=== PATIENT | female | born 1970 | race Caucasian/White ===

== ENCOUNTER → 2019-09-04 15:42 | Outpatient (CLI) | payer MEDICAID, SELFPAY ==
[2019-09-07 09:35] LABS: Age Gdln ACOG Testing 30-65 (.)
[2019-09-07 13:56] LABS: HPV APTIMA, High Risk Negative (Negative); HPV Reflexed? YES, CHARGE PATIENT
== END ==
PROVIDERS: Visit Provider Obstetrics & Gynecology
DX: Z12.4 Encounter for screening for malignant neoplasm of cervix (principal)
CPT/HCPCS: 87624; 88175; G0145

== ENCOUNTER → 2021-01-16 15:17 | Outpatient (CLI) | payer MEDICAID, SELFPAY ==
[2021-01-16 18:04] LABS: Thyroid Stim Hormone (TSH) 1.58 uIU/mL (0.358-3.74)
[2021-01-21 20:39] LABS: HPV Reflexed? NOT INDICATED
== END ==
PROVIDERS: Visit Provider Obstetrics & Gynecology
DX: Z12.4 Encounter for screening for malignant neoplasm of cervix (principal); Z13.29 Encounter for screening for other suspected endocrine disorder
CPT/HCPCS: 36415; 84443; 88175; G0145

== ENCOUNTER → 2022-10-14 | Outpatient (CLI) | payer MEDICAID, SELFPAY ==
[2022-10-14 17:36] LABS: Absolute Lymphocyte Count 2.11 X10^3/uL (0.83-4.51); Absolute Neutrophil Count 5.5 X10^3/uL (2.0-7.7); Basophil# 0.08 X10^3/uL; Eosinophil# 0.22 X10^3/uL; Eosinophils% 2.6 % (0-5); Hematocrit 40.9 % (37-47); Lymphocyte # 2.11 X10^3/ul (0.83-4.51); Lymphocyte % 25.3 % (19-41); Mean Corp Hgb Conc 31.8 g/dL (32-36); Mean Corpuscular Hgb 29.1 pg (27.0-32.0); Mean Corpuscular Volume 91.5 fL (81-99); Mean Platelet Vol. 8.8 fl (6.2-12.0); Monocyte# 0.39 X10^3/uL; Monocyte% 4.7 % (0-10); NRBC Flagged by Analyzer 0 % (0-5); Neutrophil # 5.48 X10^3/uL (2.7-7.7); Neutrophil % 65.6 % (47-70); Platelet Count 317 K/mm3 (150-450); RBC Distribution Width CV 12.6 % (11.6-14.6); RBC Distribution Width SD 41.5 fl (35.1-43.9); Red Blood Count 4.47 M/mm3 (4.2-5.4); White Blood Count 8.4 K/mm3 (4.4-11.0)
[2022-10-14 18:30] LABS: ALB/GLOB Ratio 0.9 RATIO (0.9-2.4); AST(SGOT) 50 U/L (15-37); Alanine Aminotransfer ALT/SGPT 66 U/L (13-56); Albumin, Serum 3.7 g/dL (3.2-5.0); Alkaline Phosphatase 159 U/L (45-117); Anion Gap 7 (5-15); BUN 12 mg/dL (7-18); BUN/Creat Ratio 15.3 RATIO (10-20); Calcium,Total 9.1 mg/dL (8.5-10.1); Chloride 106 mmol/L (98-107); Creatinine, Serum 0.79 mg/dL (0.55-1.02); EST Glomerular Filtration Rate 82 mL/min (>60); Est Glom Filt Rate - Afr Amer 99 mL/min (>60); Glucose 109 mg/dL (74-106); Potassium 3.9 mmol/L (3.5-5.1); Protein, Total 7.7 g/dL (6.4-8.2); Sodium Level 142 mmol/L (136-145)
== END | disposition home or self-care (01) ==
LOC: MFPLAB 16:17
PROVIDERS: PCP Family Medicine; Referring Provider Family Medicine; Visit Provider Family Medicine
DX: J02.9 Acute pharyngitis, unspecified (principal)
CPT/HCPCS: 36415; 80053; 85025

== ENCOUNTER 2023-06-18 15:30 | Outpatient (RCR) | payer MEDICAID, SELFPAY ==
--- NOTE | 2023-04-06 09:59 | HP.PTEVAL_ITS ---
Patient's Visit Information Visit Information Visit Information: JASSI ROSALES is a 53 year old F referred to Physical Therapy by Dr. Eldon White DO with a diagnosis of LUMBAR DISC HERNIATION. Date of Evaluation: 04/06/23 Physical Therapist: Kristin Kaba PT, Cert MDT Visit Plan Frequency: 2-3x /Week Duration: 4-6 Weeks Plan: *CHECK AUTH NEXT VISIT: RECORD # OF VISITS APPROVED AND EXPIRATION DATE. CHECK CODES APPROVED WITH POC* AQUATIC THERAPY FOR PAIN RELIEF, POSTURE CORRECTION/STRENGTHENING, INSTRUCTION IN APPROPRIATE BODY MECHANICS AND ACTIVITY MODIFICATIONS. DLS STARTING WITH A NEUTRAL SPINE PROGRESSING ROM TOLERATED. HYUN LE ROM, STRETCHING AND STRENGTHENING. HEP INSTRUCTION. 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 A LOT OF STANDING AND BENDING. Present symptoms: HYUN LOW BACK PAIN. PAIN, NUMBNESS AND TINGLING DOWN L LE TO THE FOOT. Present since: JUL 2022 Pain Scale: WORST 8/10, LEAST 3/10 Currently: 4/10 Is it getting better, worse or staying the same: GETTING WORSE Commenced as a result of: NO APPARENT REASON Symptoms at onset: PAIN IN L BUTTOCK Worse: PROLONGED STANDING, WALKING AND SITTING. TRYING TO DO ANYTHING EXTRA LIKE VOLLEYBALL OR PICKLE BALL. GETS WORSE THE DAY PROGRESSES. BENDING, LIFTING, TWISTING. HOUSEWORK. Better: RESTING IN SITTING OR LYING ON SIDE WITH KNEES UP, ADVIL AND TYLONOL. Disturbed sleep: SOMETIMES Previous history/Previous treatment: 2 PRIOR BACK SURGERIES IN 2013 AND 2014 FOR HERNIATION AND RE-HERNIATAION. TRESA'S PRIOR TO FIRST SURGERY WITHOUT SUCCESS. PHYSICAL THERAPY WITH LAST EPISODE OF CARE PRIOR TO 2019. Treatment this episode: ABOUT 3 WKS AGO TRIED PREDNISONE WITHOUT MUCH BENEFIT. Coughing/sneezing/straining: NEGATIVE Gait: PATIENT REPORTS HER GAIT IS CURRENTLY LIMITED BY HER BACK BUT MORE SO BY HER R ACHILLES TENDONITIS DX'D BY DR. WHITE RECENTLY. ACHILLES HAS BEEN BOTHERING HER FOR OVER A YEAR AND WORSENED IN JANUARY 2023. SHE WORKS SHE ISN'T CONFIDENT IN HER WALKING DUE TO NUMBNESS IN HER LEFT FOOT. Bowel or Bladder Dysfunction: URGE UI. NO BOWEL INCONTINENCE. Accidents: NO Unexplained weight loss: NO Imaging: RECENT LUMBAR X-RAYS - SEE [facility] EMR. NO MRI SINCE 2017. PMH/Recent major surgery: HYUN ANKLE TENDON REPAIRS. Objective Objective: Sitting/Standing Posture: POOR. ANTERIOR PELVIC TILT. NO RELEVANT LATERAL LUMBAR SHIFT. RIGHT ILIAC CREST HIGHER THAN LEFT. Active Correction of posture: WORSE Other Observations: INDEP GAIT AND TRANSFERS WITH MILD LIMP ON R LE WHICH PATIENT RELATES TO ACHILLES PAIN. Sensory deficit: HYUN LE LIGHT TOUCH SENSATION GROSSLY INTACT AND SYMMETRICAL EXCEPT DECREASED LIGHT TOUCH OF LEFT FOOT COMPARED TO RIGHT. ROM deficit: TIGHT HYUN HIP FLEXORS Motor deficit: HYUN LE'S GROSSLY 5/5 WITH MMT'ING EXCEPT HIPS 4/5. PATIENT DENIES INCREASED PAIN WITH TESTING. Reflexes: 1/2 HYUN LE'S Dural Signs: POSITIVE L LE Lumbar mvmt loss: flex - MIN ext - MOD R SG - MOD L SG - MOD PATIENT C/O INCREASED LBP WITH LUMBAR ROM TESTING ALL PLANES. Core strength: POOR Palpation: NO ACUTE LUMBAR, SACRAL OR HIP TENDERNESS. Balance/Special Test Scores Oswestry Low Back Score: 18 Goals Goal 1:: DECREASE C/O HYUN LB AND L LE SX'S. Goal Time Frame: 4-6 Weeks Goal 2:: IMPROVE LIFTING, WALKING, SITTING, STANDING, SLEEP, SOCIAL LIFE, TRAVEL AND WORK/HOMEMAKING FUNCTION. Goal Time Frame: 4-6 Weeks Goal 3:: INSTRUCT IN PROPHYLAXIS Goal Time Frame: 4-6 Weeks Anticipated Interventions Patient/Client Instruction: Educate patient on: Condition, Plan of Care and Ri sk Factors For the Purpose of:: To improve self management Therapeutic Exercise to Include: Strength training, Body mechanics, Postural training, Flexibilty training, Neuromotor development, In an aquatic setting and Dynamic Lumbar Stabilization For the Purpose of:: To decrease pain, To improve muscle performance and motor f unction, To increase tolerance to activity/condition/position and To improve ability of physical actions for home/community/work/leisure TENS: Yes IF ES: Yes Cryotherapy (ice pack, ice massage): Yes Thermo therapy (hot pack): Yes Ultrasound (thermal/non thermal): Yes For the Purpose of:: To decrease pain and To improve nutrient delivery to tissue Text: Thank you for the opportunity to evaluate your patient. For Medicare and Medicare HMO plans, please review the plan of care and approve it. It will need to be FAXED BACK to us at [phone] for Medicare purposes. For Medicare only, by signing this I certify the plan of care. Please let me know if there are questions or concerns regarding this plan of care. Physician Signature: D ate:
--- NOTE | 2023-05-05 08:40 | HP.PTREVAL ---
Re-Evaluation Intro: Dr. Eldon White, DO, It has been my pleasure to treat JASSI ROSALES over the last 10 visits for LUMBAR DISC HERNIATION. Please see the progress note below for an update on the physical therapy plan of care! Subjective Subjective: THE NUMBNESS IS NOT GOING TO MY FOOT ANYMORE. IT STAYS IN MY L BUTTOCK AND BACK OF LEG. 3/10 PAIN L. PATIENT REPORTS HER L SIDE SX'S ARE ABOUT 80% BETTER BUT HER RIGHT LB/LEG PAIN IS WORSE (NOT NEW BUT WORSE). PATIENT REPORTS SHE IS STILL HAVING ACHILLES PAIN L>R. HAS HISTORY WITH Podiatry and Ortho FOR [place]KLES IN [place] BUT IS HOPING TO FIND SOMEONE LOCAL. STATES SHE HAS ALREADY DISCUSSED WITH DR. WHITE. Objective Objective/Function: PATIENT WAS SEEN TODAY FOR RE-ASSESSMENT OF PROGRESS TOWARD THE SET PT GOALS AND THE NEED FOR FURTHER PHYSICAL THERAPY VS READINESS FOR DISCHARGE. PATIENT HAS HAD SIGNIFICANT IMPROVEMENT IN LLE SX'S BUT REPORTS INCREASED R LB/BUTTOCK PAIN. LUMBAR FLEXION AND L SG ROM HAS IMPROVED SINCE INITIAL EVAL AND HYUN LE DURAL TESTS ARE NEGATIVE NOW. HYUN ANKLE PAIN R >L PERISTS AND R ACHILLES SWELLING EVIDENT. PHYSICIAN RE-ASSESSMENT RECOMMENDED. PATIENT AGREEABLE. UPON EXAM TODAY: PATIENT CONTINUES TO HAVE DIFFICULTY WALKING WHICH PATIENT RELATES TO HER ACHILLES PAIN. Dural Signs: NEGATIVE HYUN LE'S. HYUN LE STRENGTH AND ROM WFL EXCEPT R PLANTAR FLEXION 3+/5 AND PAINFUL. CORE STRENGTH - FAIR Lumbar mvmt loss: flex - NIL ext - MOD R SG - MOD L SG - MIN PATIENT REPORTS BENDING TO THE R INCREASES R LBP. Plan Plan Plan: PHYSICIAN FOLLOW UP. HOLD CHART. Balance/Gait/Functional tests Balance/Special Test Scores Oswestry Low Back Score: 15 Goals Goals Goal 1:: DECREASE C/O HYUN LB AND L LE SX'S. Goal Time Frame: 4-6 Weeks Goal Progress: L IMPROVING, R WORSENING Goal 2:: IMPROVE LIFTING, WALKING, SITTING, STANDING, SLEEP, SOCIAL LIFE, TRAVEL AND WORK/HOMEMAKING FUNCTION. Goal Time Frame: 4-6 Weeks Goal Progress: Progressing Goal 3:: INSTRUCT IN PROPHYLAXIS Goal Time Frame: 4-6 Weeks Goal Progress: Progressing Anticipated Interventions Anticipated Interventions Patient/Client Instruction: Educate patient on: Condition, Plan of Care and Risk Factors For the Purpose of:: To improve self management Therapeutic Exercise to Include: Strength training, Body mechanics, Postural training, Flexibilty training, Neuromotor development, In an aquatic setting and Dynamic Lumbar Stabilization For the Purpose of:: To decrease pain, To improve muscle performance and motor function, To increase tolerance to activity/condition/position and To improve ability of physical actions for home/community/work/leisure TENS: Yes IF ES: Yes Cryotherapy (ice pack, ice massage): Yes Thermo therapy (hot pack): Yes Ultrasound (thermal/non thermal): Yes For the Purpose of:: To decrease pain and To improve nutrient delivery to tissue Re-Evaluation Ending Re-evaluation ending: Please do not hesitate to contact me at [phone] by phone or if you have questions or concerns regarding this new plan of care! Sincerely, Krsitin Kaba, PT, Cert MDT
--- NOTE | 2023-05-31 14:10 | HP.PTREVAL ---
Re-Evaluation Intro: Dr. Eldon White, DO, It has been my pleasure to treat JASSI ROSALES over the last 11 visits for R ACHILLES TENDINITIS. Please see the progress note below for an update on the physical therapy plan of care! Subjective Subjective: PATIENT REPORTS SHE HAD FOLLOW UP FOR HER BACK WITH DR. WHITE AND HE ORDERED AN MRI FOR HER BACK, DID NOT ORDER FURTHER PT FOR HER BACK AND REFERRED HER TO DR. PEDERSEN FOR HER R HEEL PAIN. PATIENT REPORTS DR. PEDERSEN REFERRED HER BACK TO PT FOR HER HEEL PAIN AND ORDERED X-RAYS AND AN MRI FOR HER HEEL TOO. Present symptoms: PAIN IN THE BACK OF THE R HEEL. PATIENT DENIES NUMBNESS AND TINGLING IN THE R LEG, FOOT AND TOES. PATIENT DENIES L HEEL PAIN. Present since: ABOUT 2 YEARS AGO (BEFORE STARTING PT HERE AT [facility] FOR HER BACK). Pain Scale: WORST 10/10, LEAST 2/10 Currently: 2/10 Is it getting better, worse or staying the same: GETTING WORSE Commenced as a result of: NO APPARENT REASON Symptoms at onset: BOTTOM OF R HEEL. Worse: PROLONGED STANDING, PROLONGED WALKING, TRYING TO WALK WITH A REGULAR SHOE ON, TRYING TO WALK IN BOOT GIVEN BY [place] AND TRYING TO WALK BAREFOOT. Better: REST, SITTING, LYING DOWN, NOT BEING ON IT. Disturbed sleep: SOMETIMES Previous history/Previous treatment: No prior treatment other than as a teenager when a assistant distribution manager filed a bone down on Right foot and tore tendons so Ortho repaired the tendons also as a teenager. No further treatment until current. Treatment this episode: Was issued a walking boot but unable to tolerated and plans to return it today. Gait: PATIENT REPORTS SHE HAS TO BE VERY CAREFUL HOW SHE LANDS ON HER FOOT TO AVOID STABBING PAIN AND SHE WALKS VERY STIFF. SHE REPORTS THE LONGER SHE IS ON IT THE MORE IT HURTS AND THE MORE SHE HAS TO COMPENSATE FOR THE PAIN. Unexplained weight loss: NO Imagin05/25/23 X-RAY RESULT PER DR. BENAVIDES NOTE: XR R foot and ankle - calcification at Achilles insertion and lateral to cuboid, otherwise nil acute. Objective Objective/Function: THIS PATIENT WAS SEEN TODAY FOR A RE-ASSESSMENT DUE TO NEW DX OF R ACHILLES TENDINITIS. SHE AMBULATES INDEP'LY INTO PT LIMPING ON R LE WITH CROC TYPE FLIP FLOPS ON. SHE WALKS WITH DECREASED CADANCE, DECREASED STRIDE LENGTH, DECREASED WEIGHT BEARING TIME R LE, DECREASED HEEL STRIKE AND DECREASED TOE OFF PHASES OF GAIT ON THE R LE. HYUN LE STRENGTH AND ROM WFL EXCEPT R PLANTAR FLEXION 3+/5 AND PAINFUL WITH HIP EXTENSION AND R ANKLE EVERSION 4/5 WITH VERY RESTRICTED ROM OF +3 DEG. R ANKLE DF 18 DEG, PF 42 DEG, INV 33 DEG. SHE IS TENDER WITH PALPATION OF THE DISTAL R ACHILLES TENDON AND INTO THE HEEL AT THE TENDON insertion with visible bump that feels calcified. DISCUSSED PHYSICAL THERAPY TREATMENT OPTIONS WITH PATIENT OF MODALITIES INCLUDING SHOCK WAVE THERAPY AND EXERCISES INCLUDING ECCENTRICS AND PATIENT WOULD LIKE TO TRY PT OPTIONS OTHER THAN SHOCK WAVE THERAPY FIRST. Plan Plan Plan: *CHECK AUTH FOR NEW DX* PT 2X'S A WK X 4 WKS FOR US, STM, STRETCHING AND STRENGTHENING OF R LE INCLUDING ECCENTRIC ANKLE EXERCISES TOLERATED TO TRY TO DECREASE HEEL PAIN AND IMPROVE GAIT. PATIENT IS AGREEABLE WITH THIS POC. Balance/Gait/Functional tests Balance/Special Test Scores Oswestry Low Back Score: 15 Lower Extremity Functional Score: 35 Goals Goals Goal 1:: DECREASE C/O HYUN LB AND L LE SX'S. Goal Time Frame: 4-6 Weeks Goal Progress: L IMPROVING, R WORSENING Goal 2:: IMPROVE LIFTING, WALKING, SITTING, STANDING, SLEEP, SOCIAL LIFE, TRAVEL AND WORK/HOMEMAKING FUNCTION. Goal Time Frame: 4-6 Weeks Goal Progress: Progressing Goal 3:: INSTRUCT IN PROPHYLAXIS Goal Time Frame: 4-6 Weeks Goal Progress: Progressing Goal 4:: NEW GOAL: DECREASE C/O R HEEL PAIN Goal Time Frame: 4-6 Weeks Goal 5:: IMPROVE STANDING AND WALKING FUNCTION Goal Time Frame: 4-6 Weeks Goal 6:: PATIENT WILL BE INDEP WITH A HEP FOR CONTINUED IMPROVEMENT ONCE FORMAL PHYSICAL THERAPY CONCLUDES. Goal Time Frame: 4-6 Weeks Anticipated Interventions Anticipated Interventions Patient/Client Instruction: Educate patient on: Condition, Plan of Care and Risk Factors For the Purpose of:: To improve self management Therapeutic Exercise to Include: Strength training, Body mechanics, Postural training, Flexibilty training, Neuromotor development, In an aquatic setting and Dynamic Lumbar Stabilization For the Purpose of:: To decrease pain, To improve muscle performance and motor function, To increase tolerance to activity/condition/position and To improve ability of physical actions for home/community/work/leisure TENS: Yes IF ES: Yes Cryotherapy (ice pack, ice massage): Yes Thermo therapy (hot pack): Yes Ultrasound (thermal/non thermal): Yes For the Purpose of:: To decrease pain and To improve nutrient delivery to tissue Re-Evaluation Ending Re-evaluation ending: Please do not hesitate to contact me at [phone] by phone or if you have questions or concerns regarding this new plan of care! Sincerely, Kristin Kaba, PT, Cert MDT
--- NOTE | 2023-06-18 15:53 | HP.PTDCSUM ---
Discharge Summary D/C summary: It has been my pleasure to treat JASSI ROSALES referred by Dr. Eldon White DO, with the diagnosis of R ACHILLES TENDINITIS for a total of 17 visit(s). Discharge Date: Please see the following information for a summary of their discharge status. Subjective Subjective: HAVING MRI'S NEXT WEEK FOR BACK AND ANKLE. OVER-ALL PATIENT REPORTS THERE IS NO SIGNIFICANT CHANGE IN HER ANKLE SINCE STARTING PT. Pain Lumbar: Pain Intensity (Out of 10): 4 Left LE: Pain Intensity (Out of 10): 3 Right LE: Pain Intensity (Out of 10): 6 Overall Improvement % Improvement: 0 Objective Objective/Function: PATIENT WAS SEEN TODAY FOR RE-ASSESSMENT OF PROGRESS TOWARD THE SET PT GOALS AND THE NEED FOR FURTHER PHYSICAL THERAPY VS READINESS FOR DISCHARGE. UPON EXAM TODAY THERE ARE NO SIGNIFICANT CHANGES SINCE STARTING PHYSICAL THERPAY FOR R ACHILLES TENDINITIS. MRI PENDING. WILL D/C DUE TO LACK OF PROGRESS. Goals Goal 1:: DECREASE C/O HYUN LB AND L LE SX'S. Goal Progress: L IMPROVING, R WORSENING Goal 2:: IMPROVE LIFTING, WALKING, SITTING, STANDING, SLEEP, SOCIAL LIFE, TRAVEL AND WORK/HOMEMAKING FUNCTION. Goal Progress: Progressing Goal 3:: INSTRUCT IN PROPHYLAXIS Goal Progress: Not Progressing Goal 4:: NEW GOAL: DECREASE C/O R HEEL PAIN Goal Progress: Not Progressing Goal 5:: IMPROVE STANDING AND WALKING FUNCTION Goal Progress: Not Progressing Goal 6:: PATIENT WILL BE INDEP WITH A HEP FOR CONTINUED IMPROVEMENT ONCE FORMAL PHYSICAL THERAPY CONCLUDES. Goal Progress: Not Progressing Plan Plan: D/C D/C Information d/c sentence: If there are questions or concerns regarding this patient's physical therapy, please feel free to call me at [phone]. Thank you for the referral of this patient. Sincerely, Kristin Kaba, PT, Cert MDT Balance/Gait/Functional tests Balance/Special Test Scores Oswestry Low Back Score: 15 Lower Extremity Functional Score: 34 Improvement % Improvement: 0
== END 2023-06-18 19:00 | disposition home or self-care (01) ==
LOC: PT 15:30
PROVIDERS: PCP Family Medicine; Referring Provider Orthopaedic Surgery; Visit Provider Orthopaedic Surgery
DX: M51.26 Other intervertebral disc displacement, lumbar region (principal)
CPT/HCPCS: 97035; 97110; 97113; 97140; 97162; 97164

== ENCOUNTER → 2023-06-23 | Outpatient (CLI) | payer MEDICAID, SELFPAY ==
--- NOTE | 2023-06-23 07:25 | MRI_ITS ---
STUDY: MRI RIGHT ANKLE WITHOUT CONTRAST REASON FOR EXAM: Female, 53 years old. Achilles tendonitis. TECHNIQUE: Standardized fat and water weighted pulse sequences were obtained in all 3 orthogonal planes. COMPARISON: Right ankle radiographs dated 05/25/2023. FINDINGS: Normal subcutis adipose space. Normal posterior tibialis tendon. Normal flexor digitorum longus tendon. Normal flexor hallucis longus tendon. Normal peroneus longus and brevis tendons. Normal tibialis anterior tendon. Normal extensor hallucis longus tendon. Normal extensor digitorum longus tendons. There is slightly elevated increased intrasubstance signal in the distal Achilles tendon (sagittal STIR series 3 image 13), compatible with minimal tendinosis. There is no Achilles tendon rupture/retraction. There is mild reactive subcortical marrow edema in the posterior calcaneal tuberosity. There is mild retrocalcaneal bursitis. Normal plantar fascia. Normal plantar calcaneal tuberosity. Normal intrinsic muscles of the rearfoot. Normal distal tibiofibular syndesmotic ligamentous complex. Normal lateral ligamentous complex. Normal subtalar ligaments and sinus tarsi. Normal deltoid ligamentous complex. Normal plantar calcaneonavicular (spring) ligament. Normal tibiotalar articulation. Normal talar dome. Normal subtalar articulations. Normal talonavicular articulation. Normal calcaneocuboid articulation. Normal navicular-cuneiform articulations. MRI/Lower Ext Joint Only (Routine) IMPRESSION: Minimal distal Achilles tendinosis, with no Achilles tendon rupture/retraction. Mild reactive subcortical marrow edema in the posterior calcaneal tuberosity, with mild retrocalcaneal bursitis. Electronically Signed: Curtis Garcia MD at 9:15 EDT ,
--- NOTE | 2023-06-23 07:25 | MRI_ITS ---
EXAM: MR LUMBAR SPINE WITHOUT INTRAVENOUS CONTRAST CLINICAL INDICATION: pain TECHNIQUE: Multiplanar and multisequence MR images of the lumbar spine without intravenous contrast. COMPARISON: X-ray 04/05/2023. FINDINGS: VERTEBRAE: Vertebral body heights are preserved. Normal alignment. No spondylolisthesis. There is preservation of the normal lumbar lordosis. Mild marrow edema in the L5 articular facets and right lamina, consistent with stress injury. SPINAL CORD: Unremarkable. Normal position and signal intensity of the conus medullaris. SOFT TISSUES: Unremarkable. DISCS/SPINAL CANAL/NEURAL FORAMINA: T12-L1: Normal disc height and morphology. Normal bilateral facet joints. Normal central canal. Normal bilateral lateral recesses. Normal intervertebral neural foramina. L1-2: Normal disc height and morphology. Normal bilateral facet joints. Normal central canal. Normal bilateral lateral recesses. Normal intervertebral neural foramina. L2-3: Normal disc height and morphology. Normal bilateral facet joints. Normal central canal. Normal bilateral lateral recesses. Normal intervertebral neural foramina. L3-4: Disc dehydration. Normal bilateral facet joints. Normal central canal. Normal bilateral lateral recesses. Normal intervertebral neural foramina. L4-5: Disc dehydration. Mild, noncompressive spondylotic bar. Normal bilateral facet joints. Normal central canal. Normal bilateral lateral recesses. Normal intervertebral neural foramina. L5-S1: Marked disc space narrowing. 6 mm retrolisthesis. No demonstrated spondylolysis. Modic type II fatty endplate changes. Normal bilateral facet joints. Normal central canal. Normal bilateral lateral recesses. Mild foraminal encroachment due to spurring. MRI/Spine Lumbar (Routine) IMPRESSION: No compressive disc disease, canal or high-grade foraminal stenosis. L5 posterior element marrow edema suggests stress injury. L5-S1 retrolisthesis. Electronically Signed: Cristina Bejarano MD at 16:27 EDT Reading Location ID and State: [id number] / Tel , Service support ,
== END | disposition home or self-care (01) ==
LOC: MRI 07:17
PROVIDERS: PCP Family Medicine; Referring Provider Orthopaedic Surgery Sports Medicine; Visit Provider Orthopaedic Surgery Sports Medicine
DX: M92.61 Juvenile osteochondrosis of tarsus, right ankle (principal); M76.61 Achilles tendinitis, right leg; M25.571 Pain in right ankle and joints of right foot; M51.37 Other intervertebral disc degeneration, lumbosacral region
CPT/HCPCS: 72148; 73721

== ENCOUNTER 2023-12-09 15:30 | Outpatient (RCR) | payer MEDICAID, SELFPAY ==
--- NOTE | 2023-11-10 12:09 | HP.PTEVAL ---
Patient's Visit Information Visit Information Visit Information: JASSI ROSALES is a 53 year old F referred to Physical Therapy by Dr. Reinaldo Lugo DPM with a diagnosis of R Achilles Tendinitis with Heel Spur. Date of Evaluation: 11/09/23 Physical Therapist: Martínez Lombardi DPT Visit Plan Frequency: 2x /Week Duration: 4 Weeks Plan: Begin gentle progression into strengthening to avoid irritation, PF the most irritating resisted motion. Consider increasing to orange or green band to progress HEP as pt tolerates. -ankle stretching -gentle resisted ankle strengthening -DL and SL balance (dynamic stability) -hip strengthening -dry needling to R calf prn HEP: S/L hip ABD, towel-assisted calf stretch, 3 way ankle with YTB Subjective Subjective: Pt presents to PT with R ankle/heel pain that began about 2 years ago that got progressively worse. Pt has hx of achilles tendinitis and back pain, back pain is better and feels like this has helped with walking, and tried EPAT with Dr. White to address tendinitis/-osis. Pain is typically worse at night after full day of WB (wearing night splint), soreness gets up to 4/10 at base of heel and best is 1/10, sitting helps and sometimes uses heat. Pt feels the pain has become more tolerable with stretching and EPAT, does not routinely take pain meds. Goes back every [address] White. Pt stopped wearing walking boot 6 weeks ago. Pt goals: get back to walking 3 miles for exercise, and have a normal gait pattern with stairs. 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 Pain Right Ankle: Pain Intensity (Out of 10): 2 Pain Intensity Range: 1 and 4 Objective Objective: ROM (AROM/PROM): R ankle DF 13 / 20 PF 40 / 60 INV 30 EV 20 with difficulty coordinating movement MMT: R ankle 5/5 except for PF 3/5 with increase in pain, R hip ABD 3/5 L hip ABD 3+/5 PALPATION: tenderness in medial gastroc, heel spur, achilles tendon GAIT: katia ankle supination in stance phase, increased hip sway, some hip rotation with heelstrike STAIRS: pulling and pain when descending on RLE (eccentric control difficult) Pt demonstrates decreased irritability and tolerated SL eccentric heelraises. Pt is a risk for re-irritation of Achilles tendon, but has good potential to improve gait and stair navigation with combined PT and pain management techniques (EPAT). Balance/Special Test Scores Lower Extremity Functional Score: 49 Goals Goal 1:: STG: Pt will be able to amb. 1 mile with <2/10 pain Goal Time Frame: 2-4 Weeks Goal 2:: STG: Pt will demonstrate 5/5 R ankle strength with 0/10 pain in all directions Goal Time Frame: 2-4 Weeks Goal 3:: LTG: Pt will be able to navigate stairs with <2/10 pain and good control during descent Goal Time Frame: 4-6 Weeks Goal 4:: LTG: Pt will be able to amb. 3 miles with <2/10 pain Rehabilitation Potential Physical Therapy Diagnosis: Pt presents with R heel pain and weakness most likely d/t tendinitis/-osis and heel spur. Pt would benefit from skilled PT services to address R ankle and hip strength (in WB), ankle stability, and R achilles tissue extensibility to improve pain and ease with ADLs. Rehabilitation Potential: Good Anticipated Interventions Patient/Client Instruction: Educate patient on: Condition and Plan of Care For the Purpose of:: To decrease pain, To decrease swelling/inflammation, To increase ROM, To improve nutrient delivery to tissue, To improve ability to perform ADL's, To increase tolerance to activity/condition/position, To improve performance and independence with ADL's, To decrease level of supervision to perform tasks, To improve ability of physical actions for home/community/work/leisure, To improve gait and locomotor functions, To improve health of tissue, To decrease soft tissue restriction, To increase flexibility/ROM, To improve endurance, To improve balance, To improve safety with gait, To assume or resume ADL's, To reduce risk of recurrence, To improve safety, To improve health and function, To improve self management, To prevent re-injury, To improve ability to perform tasks related to life management and To improve tolerance to ADL's Therapeutic Exercise to Include: Strength training, Endurance training and Balance training For the Purpose of:: To increase oxygenation perfusion, To improve muscle performance and motor function, To improve ability to perform ADL's, To increase tolerance to activity/condition/position, To improve performance and independence with ADL's, To decrease level of supervision to perform tasks, To improve gait and locomotor functions, To improve health of tissue, To decrease soft tissue restriction, To increase flexibility/ROM, To improve endurance, To improve balance, To improve safety, To improve health and function, To foster healthy habits, To improve ability to perform tasks related to life management and To improve tolerance to ADL's Manual Therapy Techniques to Include: Mobilization, Passive ROM, Functional dry needling and Soft tissue mobilization For the Purpose of:: To decrease pain, To decrease swelling/inflammation, To increase ROM, To improve health of tissue, To decrease soft tissue restriction, To increase flexibility/ROM, To prevent re-injury and To improve ability to perform tasks related to life management Iontophoresis (with Dexamethozone, with Acetic acid): Yes Cryotherapy (ice pack, ice massage): Yes Thermo therapy (hot pack): Yes Ultrasound (thermal/non thermal): Yes Vasopneumatic device: Yes For the Purpose of:: To decrease pain, To increase oxygenation perfusion and To improve health of tissue Text: Thank you for the opportunity to evaluate your patient. For Medicare and Medicare HMO plans, please review the plan of care and approve it. It will need to be FAXED BACK to us at [phone] for Medicare purposes. For Medicare only, by signing this I certify the plan of care. Please let me know if there are questions or concerns regarding this plan of care. Physician Signature: Date:
--- NOTE | 2023-12-10 15:20 | HP.PTREVAL ---
Re-Evaluation Intro: Dr. Reinaldo Lugo, DPM, It has been my pleasure to treat JASSI ROSALES over the last 9 visits for R Achilles Tendinitis with Heel Spur. Please see the progress note below for an update on the physical therapy plan of care! Subjective Subjective: Pt sees Dr. Lugo next week, pt saw him 3 weeks ago and he Pts current goal is to make it as good as possible. Pt would like to get back to working out and walking. Pt does not notice herself limping, but says [facility] that she limps. Pt is unsure of how much more potential she has for PT and if sx will need to be an option. Feels that strength and ROM have improved but still having pain. Worst pain has been is a 5/10 generally at end of the day. Still receiving EPAT treatments. Objective Objective/Function: ROM: PF 50 deg, DF 12 deg, INV 15 deg, EV 8 deg more of a stretch MMT: 5/5 global ankle strength, some irritation with repetitive HR GAIT: early heel off, decreased DF in stance phase STAIRS: reciprocal pattern with no UE support PALPATION: some pain on heel spur with moderate to firm pressure Pt demonstrates low level of irritability, but increased activity still causes pain and difficulties with walking. Pt appropriate to trial walking program and begin to transition to more indep HEP/management at home. Achilles tightness/stiffness along with point tenderness pain and decreased muscular endurance seems to be greatest limiting factors at the moment. Plan Plan Plan: Pt to change to 1x per week and begin walking program indep. -continue stretching for plantar fascia and calves and invertors (make sure foot is more neutral and not supinated before stretching) -ankle eccentrics -foot mobilizations (rigid foot) Balance/Gait/Functional tests Balance/Special Test Scores Lower Extremity Functional Score: 49 Goals Goals Goal 1:: STG: Pt will be able to amb. 1 mile with <2/10 pain Goal Time Frame: 2-4 Weeks Goal Progress: Progressing Goal 2:: STG: Pt will demonstrate 5/5 R ankle strength with 0/10 pain in all directions Goal Time Frame: 2-4 Weeks Goal Progress: Goal Met Goal 3:: LTG: Pt will be able to navigate stairs with <2/10 pain and good control during descent Goal Time Frame: 4-6 Weeks Goal 4:: LTG: Pt will be able to amb. 3 miles with <2/10 pain Goal Progress: Progressing Anticipated Interventions Anticipated Interventions Patient/Client Instruction: Educate patient on: Condition and Plan of Care For the Purpose of:: To decrease pain, To decrease swelling/inflammation, To increase ROM, To improve nutrient delivery to tissue, To improve ability to perform ADL's, To increase tolerance to activity/condition/position, To improve performance and independence with ADL's, To decrease level of supervision to perform tasks, To improve ability of physical actions for home/community/work/leisure, To improve gait and locomotor functions, To improve health of tissue, To decrease soft tissue restriction, To increase flexibility/ROM, To improve endurance, To improve balance, To improve safety with gait, To assume or resume ADL's, To reduce risk of recurrence, To improve safety, To improve health and function, To improve self management, To prevent re-injury, To improve ability to perform tasks related to life management and To improve tolerance to ADL's Therapeutic Exercise to Include: Strength training, Endurance training and Balance training For the Purpose of:: To increase oxygenation perfusion, To improve muscle performance and motor function, To improve ability to perform ADL's, To increase tolerance to activity/condition/position, To improve performance and independence with ADL's, To decrease level of supervision to perform tasks, To improve gait and locomotor functions, To improve health of tissue, To decrease soft tissue restriction, To increase flexibility/ROM, To improve endurance, To improve balance, To improve safety, To improve health and function, To foster healthy habits, To improve ability to perform tasks related to life management and To improve tolerance to ADL's Manual Therapy Techniques to Include: Mobilization, Passive ROM, Functional dry needling and Soft tissue mobilization For the Purpose of:: To decrease pain, To decrease swelling/inflammation, To increase ROM, To improve health of tissue, To decrease soft tissue restriction, To increase flexibility/ROM, To prevent re-injury and To improve ability to perform tasks related to life management Iontophoresis (with Dexamethozone, with Acetic acid): Yes Cryotherapy (ice pack, ice massage): Yes Thermo therapy (hot pack): Yes Ultrasound (thermal/non thermal): Yes Vasopneumatic device: Yes For the Purpose of:: To decrease pain, To increase oxygenation perfusion and To improve health of tissue Re-Evaluation Ending Re-evaluation ending: Please do not hesitate to contact me at [phone] by phone or if you have questions or concerns regarding this new plan of care! Sincerely, RIAN LindquistT
== END 2023-12-09 19:00 | disposition home or self-care (01) ==
LOC: PT 15:30
PROVIDERS: PCP Family Medicine; Referring Provider Podiatrist; Visit Provider Podiatrist
DX: M76.61 Achilles tendinitis, right leg (principal); M77.31 Calcaneal spur, right foot
CPT/HCPCS: 97110; 97161; 97530

== ENCOUNTER → 2024-07-12 | Outpatient (CLI) | payer OTHER, SELFPAY ==
--- NOTE | 2024-07-12 09:17 | RAD_ITS ---
STUDY: X-RAY - LEFT SHOULDER REASON FOR EXAM: Female, 54 years old. left shoulder pain TECHNIQUE: 4 view(s) of the shoulder. COMPARISON: None. FINDINGS: Normal glenohumeral articulation. Normal acromioclavicular joint. Normal acromion. Normal humeral head and visualized proximal humerus. There is periarticular soft tissue calcification consistent with a calcific tendinitis. Normal visualized pulmonary apex. RAD/Shoulder min 2 Views IMPRESSION: No demonstrated fracture or joint space abnormality Evidence of calcific rotator cuff tendinitis Electronically Signed: Nitish Viramontes MD at 9:48 EDT ,
== END | disposition home or self-care (01) ==
PROVIDERS: PCP Family Medicine; Referring Provider Family Medicine; Visit Provider Family Medicine
DX: M25.512 Pain in left shoulder (principal)
CPT/HCPCS: 73030

== ENCOUNTER → 2024-07-24 | Outpatient (CLI) | payer OTHER, SELFPAY ==
[2024-08-01 15:09] LABS: HPV APTIMA, High Risk Negative (Negative)
[2024-08-02 08:08] LABS: HPV Reflexed? NOT INDICATED
== END | disposition home or self-care (01) ==
PROVIDERS: Registered Nurse; PCP Family Medicine
DX: Z12.4 Encounter for screening for malignant neoplasm of cervix (principal)
CPT/HCPCS: 88175; G0145

== ENCOUNTER → 2024-07-27 | Outpatient (CLI) | payer OTHER, SELFPAY ==
[2024-07-27 10:26] LABS: Anion Gap 3 (5-15); BUN 24 mg/dL (7-18); BUN/Creat Ratio 32.5 RATIO (10-20); Chloride 105 mmol/L (98-107); Cholesterol 173 mg/dL (200); Creatinine, Serum 0.74 mg/dL (0.55-1.02); EST Glomerular Filtration Rate 87 mL/min (>60); Est Glom Filt Rate - Afr Amer 106 mL/min (>60); Follicle Stimulating Hormone 63.2 mIU/mL; Glucose 86 mg/dL (74-106); High Density Lipoprotein 83 mg/dL; Luteinizing Hormone 30.6 mIU/mL; Potassium 4.3 mmol/L (3.5-5.1); Sodium Level 136 mmol/L (136-145); Triglycerides 36 mg/dL; Very Low Density Lipoprotein 7 mg/dL (5-40)
[2024-07-27 10:27] LABS: Vitamin D,25 Hydroxy 34.4 ng/mL
[2024-08-01 22:06] LABS: Estrogen, Total, Serum 28 pg/mL (.)
== END | disposition home or self-care (01) ==
PROVIDERS: Registered Nurse; PCP Family Medicine
DX: Z00.00 Encounter for general adult medical examination without abnormal findings (principal); Z78.0 Asymptomatic menopausal state
CPT/HCPCS: 36415; 80048; 80061; 82306; 82672; 83001; 83002

== ENCOUNTER → 2024-08-04 | Outpatient (CLI) | payer OTHER, SELFPAY ==
--- NOTE | 2024-08-04 15:30 | BI_ITS ---
MAMMOGRAPHY - BILATERAL SCREENING REASON FOR EXAM: Female, 54 years old. Routine annual screening examination. PERTINENT HISTORY: Mother with breast cancer. TECHNIQUE: Digital bilateral breast lulu (3D mammographic acquisition) in the CC and MLO projections. 2-D mediolateral oblique (MLO) and craniocaudad (CC) views of both breasts were obtained. CAD: Full Field Digital Mammography with Computer Added Detection was performed. COMPARISON: Comparison is made with prior outside examination of April 22, 2022. FINDINGS: Breast Composition: There are scattered areas of fibroglandular density. There are no dominant masses or suspicious calcifications. No other significant abnormalities are identified. There has been no significant change since the prior study. BI/SCRN MAMM (CAD)W/LULU BILAT IMPRESSION: Stable bilateral screening mammogram. Yearly follow-up mammogram recommended. (A) ASSESSMENT CATEGORY: BIRADS Category 1: Negative. A letter regarding these results will be sent to the patient by the facility within 30 days. Approximately 10% of breast cancers are not detected by mammography. A normal mammogram should not delay biopsy of a clinically suspicious abnormality. [id number] Electronically Signed: Owen Perez MD at 10:19 EST ,
== END | disposition home or self-care (01) ==
PROVIDERS: PCP Family Medicine
DX: Z12.31 Encounter for screening mammogram for malignant neoplasm of breast (principal); Z80.3 Family history of malignant neoplasm of breast
CPT/HCPCS: 77063; 77067

== ENCOUNTER → 2024-08-30 | Outpatient (CLI) | payer OTHER, SELFPAY | END | disposition home or self-care (01) | LOC: LAB.FUTURE 01:06 → LAB 10:25 → LABSPEC 10:27 | PROVIDERS: PCP Family Medicine; Visit Provider Family Medicine | DX: N39.0 Urinary tract infection, site not specified (principal) | CPT/HCPCS: 87077; 87086; 87088; 87186 ==

== ENCOUNTER 2024-09-05 16:30 | Outpatient (RCR) | payer OTHER, SELFPAY ==
--- NOTE | 2024-07-20 18:07 | HP.PTEVAL_ITS ---
Patient's Visit Information Visit Information Visit Information: JASSI ROSALES is a 54 year old F referred to Physical Therapy by Dr. Gary Waterman MD with a diagnosis of L shoulder tendonitis. Date of Evaluation: 07/20/24 Physical Therapist: Natanael Ball, PT, ATC Visit Plan Frequency: 2x /Week Duration: 1-4 weeks Plan: Issue and instruct pt on HEP of L shoulder rot cuff and scap stab ex's Subjective Subjective: Pt reports her L shoulder has been sore for approximately 2 weeks. Pt reports she did get hurt on her L shoulder when a pole fell and hit her there. Pt reports she had x-rays taken which revealed calcific tendonitis. Pt notes she is on prednisone which has really helped to control her pain. Pt denies any L UE tingling or numbness. Pt denies sleep difficulty since being placed on prednisone. Pt is R hand dominant. Pt denies any other L UE trauma in the past. 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 Pt reports she is limited from performing any activity that is over her head. Pt notes her pain is always worse as the day goes on. Pt reports her L shoulder pain is currently 5/10 while at rest, but increases to 10/10 at worst. Pain L shoulder: Pain Intensity (Out of 10): 5 Pain Intensity Range: 10 Objective Objective: Neuro: B UE sensation is WNL to light touch. B bicipital reflex= 2/3 Palpation: Pt is tender along the distribution of supraspinatus and lateral joint line. No obvious deformity at this time ROM: R shoulder flex= 165, abd= 160, ER= 70, IR= WNL;L shoulder flex= 65, abd= 65, ER= 45, IR= WNL MMT: R shoulder flex= 13, abd= 21, ER= 17, IR= 21 #F;L shoulder flex= 4, abd= 5, ER= 7, IR= 9 #F Special tests: pos empty can, neers impingement Balance/Special Test Scores Quick DASH Score: 54.5450 Goals Goal 1:: Decrease L shoulder pain x 50% to aid with sleep Goal Time Frame: 2-4 Weeks Goal 2:: Increase L shoulder flex and abd ROM x 30 degrees to aid with overhead lifting Goal Time Frame: 2-4 Weeks Goal 3:: I with HEP Goal Time Frame: 2-4 Weeks Rehabilitation Potential Physical Therapy Diagnosis: Pt has L shoulder pain, weakness, and limited ROM secondary to calcific tendonitis Rehabilitation Potential: Good Anticipated Interventions Patient/Client Instruction: Educate patient on: Condition and Plan of Care For the Purpose of:: To improve self management Therapeutic Exercise to Include: Strength training, Active ROM and Scapular Strength/Stabilization For the Purpose of:: To decrease pain, To increase ROM and To improve muscle performance and motor function Cryotherapy (ice pack, ice massage): Yes For the Purpose of:: To decrease pain Text: Thank you for the opportunity to evaluate your patient. For Medicare and Medicare HMO plans, please review the plan of care and approve it. It will need to be FAXED BACK to us at [phone] for Medicare purposes. For Medicare only, by signing this I certify the plan of care. Please let me know if there are questions or concerns regarding this plan of care. Physician Signature: Date:
--- NOTE | 2024-10-30 10:01 | HP.PT.NRP ---
Patient Information Patient Information: JASSI ROSALES was seen in my office for initial evaluation on 07/20/24. The following Plan of Care was established for this patient: POC Established Initial Frequency: 2x /Week Initial Duration: 1-4 weeks Anticipated Interventions Patient/Client Instruction: Educate patient on: Condition and Plan of Care For the Purpose of:: To improve self management Therapeutic Exercise to Include: Strength training, Active ROM and Scapular Strength/Stabilization For the Purpose of:: To decrease pain, To increase ROM and To improve muscle performance and motor function Cryotherapy (ice pack, ice massage): Yes For the Purpose of:: To decrease pain Last Seen Last Seen: This patient was last seen in our office . Pertinent comments regarding their Physical therapy will appear below: Pt has not returned to physical therapy for greater than 30 days. Discontinue at this time. At this point I will be discontinuing this patient from physical therapy. I would be happy to see this patient again in the future if found appropriate by the physician. Thank you! Natanael Ball, PT, ATC Balance/Gait/Functional tests Balance/Special Test Scores Quick DASH Score: 54.5450
== END 2024-09-05 19:00 | disposition home or self-care (01) ==
LOC: PT 16:30
PROVIDERS: PCP Family Medicine; Referring Provider Orthopaedic Surgery Sports Medicine; Visit Provider Orthopaedic Surgery Sports Medicine
DX: M25.512 Pain in left shoulder (principal); M75.32 Calcific tendinitis of left shoulder
CPT/HCPCS: 97110; 97161; 97530

== ENCOUNTER → 2024-09-08 | Outpatient (CLI) | payer OTHER, SELFPAY | END | disposition home or self-care (01) | PROVIDERS: PCP Family Medicine; Referring Provider Family Medicine; Visit Provider Family Medicine | DX: N39.0 Urinary tract infection, site not specified (principal) | CPT/HCPCS: 87077; 87086; 87088; 87186 ==

== ENCOUNTER → 2025-05-02 | Outpatient (CLI) | payer OTHER, SELFPAY ==
--- NOTE | 2025-05-02 07:22 | MRI_ITS ---
PROCEDURE: SPINE LUMBAR W/WO CONTRAST 05/02/2025 REASON FOR EXAM: PAIN, RADICULOPATHY, FOOT DROP PARTIAL TECHNIQUE: SPINE LUMBAR W/WO CONTRAST Multiplanar and multisequence images were obtained without and with intravenous gadolinium-based contrast administration. CONTRAST: Clariscan VOLUME: 17 mL COMPARISON: March 27, 2025 FINDINGS: Vertebrae: No fracture is seen. Vertebral body height is preserved. Alignment: Curvature of the lumbar spine to the left Conus Medullaris: Terminates at L1. No abnormal cord signal. L1-2: Gwum-xh-rkxadvaj bilateral facet hypertrophy. No stenosis. L2-3: Minimal, diffuse disc bulge. Moderate thickening of ligamentum flavum. Mild bilateral facet hypertrophy. No central stenosis or exit foraminal narrowing. L3-4: Minimal, diffuse disc bulge. Moderate thickening of ligamentum flavum. Vlyw-so-xrcsnebf bilateral facet hypertrophy. No central stenosis or exit foraminal narrowing. Incidentally, there is some mild edema of the left pedicle. This is at the apex of the spinal curvature. L4-5: Mild disc desiccation. Moderate, diffuse disc bulge with a left sub foraminal zone focal disc extrusion (7.2 x 6.3 x 6.8 mm). This abuts the traversing L5 nerve root but does not appear to contact the L4 nerve root. Severe thickening of the ligamentum flavum is present. Moderate facet joint hypertrophy is seen with small right facet joint effusion. Interspinous arthropathy is seen with subchondral cyst formation and mild edema. Distortion of the central canal is seen primarily from disc disease and thickening of the ligamentum but there is no central stenosis. L5-S1: Severe disc desiccation. Moderate loss of disc height. Diffuse disc osteophyte protrusion is seen. Mild bilateral facet hypertrophy. Mild thickening of the right ligamentum flavum. The left ligamentum is not seen. There has possibly been prior intervention on the left side. Some narrowing of the exit foramina is shown bilaterally from a combination of disc osteophyte and facet disease. Scant amount of fat is seen around the nerve roots. Correlate with bilateral L5 radiculopathy. Sacrum: Limited but normal. MRI/Spine Lumbar W/WO Contrast IMPRESSION: Multilevel degenerative disc disease. A focal disc extrusion is seen at L4/5. See above descriptions. Curvature lumbar spine to the left centered at L3/4. Mild edema of the L4 pedi vanessa. Reading Location: [id number]
--- OUTSIDE RECORDS SUMMARY | 2025-05-02 07:26 | XMS RPT_ITS | CCD ---
Author Organization [facility] CliniSynh Care Team Providers Care Environmental Permitting Specialist Name Role Phone GIOVANY SULLIVAN DO Primary Care Physician AMY OLMSTEAD, DR. GIOVANY Galvez Attending Unavailab le GIOVANY SULLIVAN DO Primary Care Unavailable MEE HEMPHILL DO Attending Unavailable GIOVANY SULLIVAN DO Primary Care Unavailable DO Mee Hemphill Primary Care Provider DO Mee Hemphill Referring Provider 1([facility])[phone] Dr. Eldon White Attending Provider 1([facility])[phone] Dr. Boris Layne Attending Provider 1([facility])[phone] MD Gary Waterman Attending Provider Boyd Burden MD Primary Care Provider [phone] Boyd Burden MD Attending Provider [phone] Gary Waterman MD Attending Provider Gary Waterman MD Referring Provider Boyd Burden MD Referring Provider 1([facility])[phone] Boyd Burden MD Primary Care Provider [phone] Boyd Burden MD Referring Provider [phone] Chrissy Thomason Attending Provider Dr. Boris Layne MD Attending Provider [phone] Bertram, Chalon Referring Unavailable Gary Waterman Attending Unavailable Bertram, Chalon Primary Care Unavailable Bertram, Chalon Primary Care Unavailable Bertram, Chalon Referring Unavailable Bertram, Chalon Attending Unavailable Bertram, Chalon Primary Care Unavailable THOMAS, TYLER Referring Unavailable THOMAS, TYLER Attending Unavailable Bertram, Chalon Primary Care Unavailable Bertram, Chalon Referring Unavailable Bertram, Chalon Attending Unavailable Bertram, Chalon Attending Unavailable Bertram, Chalon Primary Care Unavailable Bertram, Chalon Primary Care Unavailable TYLER GUZMAN Attending Unavailable Shorty Solaresyn Referring Unavailable BeckChrissy Attending Unavailable Bertram, Chalon Primary Care Unavailable THOMAS, TYLER Attending Unavailable Bertram, Chalon Primary Care Unavailable THOMAS, TYLER Referring Unavailable Gary Waterman Referring Unavailable Gary Waterman Attending Unavailable Bertram, Chalon Primary Care Unavailable Bertram, Chalon Primary Care Unavailable XiBoris jones Attending Unavailable Bertram, Chalon Referring Unavailable Beck, Chrissy Attending Unavailable Bertram, Chalon Primary Care Unavailable Allergies Allergy Classification Reported Allergen(s) Allergy Type Date of Onset Reaction(s) Facility (8 sources) Cephalexin; Translations: [cephalexin] Drug Allergy 05-25-20 [facility] (2 sources) Penicillin; Translations: [penicillins] Drug Allergy [facility] (2 sources) Sulfamethoxazole / Trimethoprim; Translations: [sulfamethoxazole-tr imethoprim] Drug Allergy [facility] (6 sources) Penicillins Allergy to substance 05-25-20 Anaphylaxis [facility] (6 sources) Sulfamethoxazole Drug Allergy 05-25-20 [facility] (6 sources) Trimethoprim Drug Allergy 05-25-20 [facility] (1 source) Cephalexin Drug Allergy 03-27-20 [facility] (1 source) Penicillins Drug allergy (disorder) 03-27-20 [facility] (1 source) Sulfamethoxazole Drug Allergy 03-27-20 [facility] (1 source) Trimethoprim Drug Allergy 03-27-20 [facility] Medications Current Medications Medication Drug Class(es) Dates Sig (Normalized) Sig (Original) Lactobacillus Combo No.11 (Probiotic) 15 billion cell capsule, sprinkle (6 sources) Start: 04-05-2023 Lactobacillus Combo No.11 (Probiotic) 15 billion cell capsule, sprinkle Active 1 NMA PO DAILY April 05, 2023 12:00am do not crush/chew/cut; swallow whole OR may open and sprinkle in cold drink/food Start: 04-05-2023 take 1 capsule by mo uth once daily Lactobacillus Combo No.11 (Probiotic) 15 billion cell capsule, sprinkle Active 1 CAP PO DAILY April 05, 2023 12:00am do not crush/chew/cut; swallow whole OR may open and sprinkle in cold drink/food methocarbamol 500 mg oral tablet (1 source) Muscle Relaxant Start: 03-27-2025 take 1 tablet by mouth three times daily as needed for pain Methocarbamol 500 mg tablet Active 500 mg PO THREE TIMES A DAY as needed for pain/spasms 30 0 March 27, 2025 12:00am Multivitamin preparation (1 source) Start: 04-05-2023 take 1 tablet by mouth once daily Multivitamin Active 1 TABLET PO DAILY April 05, 2023 12:00am Multivitamin tablet (5 sources) Start: 04-05-2023 Multivitamin tablet Active 1 {tbl} PO DAILY April 05, 2023 12:00am naproxen sodium 220 mg oral tablet (2 sources) Nonsteroidal Anti-inflammatory Drug Start: 04-07-2016 Aleve 220 mg oral tablet Dose : 220 mg = 1 tab(s), Oral, q8h, PRN for pain, 0 Refill(s) Start Date: 04/07/16 Status: Ordered Completed/Discontinued Medications Medication Drug Class(es) Dates Sig (Normalized) Sig (Original) azithromycin 250 mg oral tablet (5 sources) Macrolide Antimicrobial Start: 10-22-2023 End: 07-17-2024 take 2-5 tablets by mouth once daily Azithromycin 250 mg tablet Discontinued 0 PO .COMPLEX 6 0 October 22, 2023 1:00am July 17, 2024 8:33am take 500 mg today (day 1), then 250 mg for 4 days (days 2-5) PO cholecalciferol 0.01 mg oral tablet (6 sources) Vitamin D Start: 04-05-2023 End: 03-27-2025 take 1 tablet by mouth once daily Cholecalciferol (Vitamin D3) 10 mcg (400 unit) tablet Discontinued 10 ug PO DAILY April 05, 2023 12:00am March 27, 2025 8:38am Magnesium (6 sources) Start: 04-05-2023 End: 03-27-2025 take 1 tablet by mouth once daily Magnesium 200 mg tablet Discontinued 200 mg PO DAILY April 05, 2023 12:00am March 27, 2025 8:38am Start: 04-05-2023 take 1 tablet by dominick once daily Magnesium 200 mg tablet Active 200 mg PO DAILY April 05, 2023 12:00am Start: 04-05-2023 take 200 mg by mouth once nickolas y Magnesium Active 200 MG PO DAILY April 05, 2023 12:00am predniSONE 20 mg oral tablet (5 sources) Start: 07-17-2024 End: 03-27-2025 take 1 tablet by mouth once daily Prednisone 20 mg tablet Discontinued 20 mg PO daily July 17, 2024 12:00am March 27, 2025 8:38am Problems Active Problems Problem Classification Problem Date Documented Date Episodic/Chronic Other bone disease and musculoskeletal deformities (6 sources) Posterior calcaneal exostosis; Translations: [Juvenile osteochondrosis of tarsus, right ankle] 05-25-2023 Chronic Other bone disease and musculoskeletal deformities (1 source) Juvenile osteochondrosis of tarsus, right ankle; Translations: [Juvenile osteochondrosis of foot] 05-25-2023 Chronic Other connective tissue disease (2 sources) Pain in lower limb 08-03-2014 Episodic Other connective tissue disease (1 source) Achilles tendinitis; Translations: [Achilles tendinitis, right leg] 05-25-2023 Episodic Other connective tissue disease (1 source) Achilles tendinitis, right leg; Translations: [Achilles bursitis or tendinitis] 05-25-2023 Episodic Other connective tissue disease (5 sources) Right achilles tendonitis; Translations: [Achilles tendinitis, right leg] 05-25-2023 Episodic Other connective tissue disease (5 sources) Calcific tendinitis of left shoulder; Translations: [Calcific tendinitis of left shoulder] 07-17-2024 Episodic Other female genital disorders (2 sources) Premenstrual tension syndrome 11-06-2014 Chronic Other lower respiratory disease (5 sources) Viral respiratory infection; Translations: [Other specified respiratory disorders] 08-29-2023 Episodic Other lower respiratory disease (5 sources) Cough; Translations: [Cough] 08-29-2023 Episodic Other nervous system disorders (2 sources) Numbness 08-01-2014 Episodic Comment on above: RADIATES DOWN RIGHT LEG AND NUMB BOTTOM LEFT FOOT Other non-traumatic joint disorders (6 sources) Ankle pain; Translations: [Pain in right ankle and joints of right foot] 05-25-2023 Episodic Other non-traumatic joint disorders (1 source) Pain in right ankle and joints of right foot; Translations: [Pain in joint, ankle and foot] 05-25-2023 Episodic Other upper respiratory infections (5 sources) Sore throat symptom; Translations: [Acute pharyngitis, unspecified] 08-29-2023 Episodic Otitis media and related conditions (10 sources) Dysfunction of eustachian tube; Translations: [Unspecified Eustachian tube disorder, right ear] 10-22-2023 Episodic Residual codes; unclassified (2 sources) C/O: a pain 11-06-2014 Episodic Comment on above: 6 Spondylosis; intervertebral disc disorders; other back problems (18 sources) Intervertebral disc prolapse; Translations: [Degeneration of lumbosacral intervertebral disc] 11-06-2014 Chronic Spondylosis; intervertebral disc disorders; other back problems (12 sources) Spinal stenosis of lumbar region; Translations: [Low back pain] Onset: 03-27-2025 08-01-2014 Episodic Unclassified (2 sources) Entire ankle region (body structure) 06-11-2015 Comment on above: pain Unclassified (1 source) Degeneration of intervertebral disc at L5-S1 level Unclassified (1 source) M54.16 - Radiculopathy, lumbar region,M51.37 - Other intervertebral disc degeneration, lumbosacral region Past or Other Problems Problem Classification Problem Date Documented Da te Episodic/Chronic Other connective tissue disease (1 source) Calcific tendinitis of left shoulder; Translations: [Calcific tendinitis of left shoulder] Onset: 10-30-2024 Episodic Other non-traumatic joint disorders (6 sources) Pain in left shoulder; Translations: [Left shoulder pain] Onset: 10-30-2024 07-17-2024 Episodic Other screening for suspected conditions (not mental disorders or infectious disease) (2 sources) Encounter for screening mammogram for malignant neoplasm of breast; Translations: [Encounter for screening for malignant neoplasm of cervix] Onset: 12-14-2024 Episodic Urinary tract infections (1 source) Urinary tract infection, site not specified; Translations: [Urinary tract infection, site not specified] Onset: 10-05-2024 Episodic Results Test Name Value Interpretation Reference Range Facility L/S Spine Min 4 Viewson 07-0 L/S Spine Min 4 Views [facility] [address] [place] [address] L/S Spine Min 4 Views MR#: [id number] Acct: [id number] Name: JASSI ROSALES Rep #: [id number] : 1970 F 55 From: Memo Zamarripa MD PCP: Dr. Boyd Burden MD Status: DEP AMB Study: L/S Spine Min 4 Views Date of Exam: 03/27/25 Exam# [id number] Ordering Dr: Chrissy Solares EXAM: XR Lumbosacral Spine Flexion/Extension Only, 2 or 3 Views CLINICAL INDICATION: CHRONIC PAIN, INCREASING RECENTLY TECHNIQUE: Lateral flexion/extension views of the lumbar spine and sacrum. COMPARISON: No relevant prior studies available. FINDINGS: VERTEBRAE: Moderate facet arthropathy L3-S1. Mild endplate degenerative change and disc disease of L4-S1. Normal sagittal alignment. No acute fracture or significant dynamic instability. SACRUM/COCCYX: Unremarkable as visualized. No acute fracture. DISC SPACES: No acute findings. No significant narrowing. SOFT TISSUES: Unremarkable. RAD/L/S Spine Min 4 Views IMPRESSION: 1. No acute fracture or significant dynamic instability. 2. Degenerative changes as above. Reading [facility]: [facility] CC: CESAR Malone; Dr. Boyd Burden MD Gameplay Programmer: Signed Normal [facility] Orthopedic Visit Reporton Orthopedic Visit Report [facility] [address] [place] [id number] OFFICE VISIT Date of Service: 03/27/25 MR#: [id number] Acct: [id number] Name: JASSI ROSALES Rep #: [id number] : 1970 Provider: CESAR Malone Age/Sex: 55/F Location[place] [facility] [place] Status: Signed Intake Vital Signs 07/17/24 08:31 03/27/25 08:37 Height 5 ft 7 in 5 ft 7 in Weight: 182 lb 3 oz BMI 28.5 Intake Visit Reasons: LUMBAR SPINE Chief Complaint: Lumbar Spine Pain Accompanied by: Self Is patient in pain?: Yes Pain scale (1-10): 7 Allergies cephalexin Allergy (Verified 03/27/25 08:38) Hives Penicillins Allergy (Verified 03/27/25 08:38) Anaphylaxis sulfamethoxazole (From Bactrim) Allergy (Verified 03/27/25 08:38) Hives trimethoprim (From Bactrim) Allergy (Verified 03/27/25 08:38) Hives Medications ???Medication ???Instructions ???Recorded ???Confirmed ???Type lactobacillus combo no.11 15 1 cap PO DAILY 04/05/23 03/27/25 H istory billion cell sprinkle capsule (Probiotic) multivitamin 1 tab PO DAILY 04/05/23 03/27/25 H istory methocarbamol 500 mg tablet 500 mg PO TID PRN pain/spasms #30 03/27/25 03/27/25 Rx tabs PFSH Medical History Calcific tendonitis of left shoulder Left shoulder pain Gloria's deformity of right heel Right Achilles tendinitis Right ankle pain Social History Smoking Status: Never smoker alcohol intake: current alcohol intake frequency: holidays/special occasions only HPI LUMBAR SPINE Details: This documentation accurately reflects the service provided and the decisions made by me, CESAR Malone 03/27/25 0835. Part of today???s visit was documented by Ana Trammell ATC, acting as scribe. JASSI ROSALES is a 55 year old F here today for lumbar spine pain. Patient states she had a prior lumbar surgery and she had flare-ups randomly. She states this flare-up started in and it has not gotten better and it is to the point where she can't manage. She had the prior surgeries at [facility] and the most recent was 2014. She had one in 2013 and then it re- herniated 9 weeks later and she had to go back in for another surgery in early 2014. Sounds like it was a discectomy at L5-S1. She describes the pain in the left buttocks down the left lateral thigh, side of the calf and into her big toe. She complains of numbness/tingling in the left leg all the way to her toes. She denies any pain, numbness/tingling in the right leg. Pain does get better when laying down. Walking does increase the pain. Sitting increases the pain as well. She states due to the numbness it may cause her some balance issues. She denies any recent injections or physical therapy. she did do some PT in 2022. She has done decompression/laser treatment with a chiropractic in [place] and states it may just take the edge off and makes it better to function. She is still in treatment for this and goes twice a week. She has been going for this since January and had 20 treatments. Patient states she will take Ibuprofen/Tylenol for the pain. No diabetes, no heart or lung issues, no blood thinners. No abdominal surgeries. No cane or walker. Has tried gabapentin in the past which she said gave her mental status changes that she did not like. She has taken ibuprofen and Tylenol as needed [id number]-[id number]-edbeoit with only mild relief. Ortho Exam General General: Yes no acute distress Neurologic: Yes alert and Yes oriented x3 Spine SPINE TESTING CERVICAL THORACIC LUMBAR Musculoskeletal Strength 0=absent - 5=normal Details: Neurological exam of the lower extremities shows 4-left dorsiflexion consistent with a partial foot drop, all other muscle groups show 5 power. Normal sensations across all dermatomes. No hyperreflexia. No midline or paraspinal tenderness. Passive straight leg raise positive on the left. Physical examination of the back shows a well-healed midline incision. Coding Level of Care Code Off vis,est,level 4 Diagnoses Foot drop, left M21.372 Lumbar radiculopathy M54.16 Degenerative disc disease at L5-S1 level M51.37 Assessment and Plan Assessment and Plan (1) Foot drop, left: (2) Lumbar radiculopathy: Status: Acute (3) Degenerative disc disease at L5-S1 level: Status: Acute Orders: Orders L/S Spine Min 4 Views Today M54.9 - Dorsalgia, unspecified Spine Lumbar W/WO Contrast Today M21.372 - Foot drop, left foot, M51.37 - Other intervertebral disc degeneration, lumbosacral region, M54.16 - Radiculopathy, lumbar region Referrals Pain Management M51.37 - Other intervertebral disc degeneration, lumbosacral region, M54.16 - Radiculopathy, lumbar region Medications: Ne (more content not included)... Normal [facility] Urine Cultureon 09-12-2024 [facility] Streptococcus mitis/ oralis Murphy Count 11,000-25,000 Streptococcus mitis/ oralis: REACTION Ampicillin Islt TATE 1 Penicillin G Islt TATE 0.25 I Cefotaxime Islt TATE <=0.12 S cefTRIAXone Islt TAET <=0.12 S Linezolid Islt TATE <=2 S Vancomycin Islt TATE 0.25 S Normal [facility] Comment on above: Performed By: #### M 100.2200 #### [facility] [address] [place], [address] Urine cultureOrdered By: Lesvia Burden on 09-08-2024 Bacteria identified Cx Nom (U) Streptococcus mitis/ oralis Abnormal [facility] Urine Cultureon 09-04-2024 [facility] Streptococcus mitis/ oralis Murphy Count 11,000-25,000 Streptococcus mitis/ oralis: REACTION Ampicillin Islt TATE <=0.25 Penicillin G Islt TATE 0.25 I Cefotaxime Islt TATE <=0.12 S cefTRIAXone Islt TATE <=0.12 S Linezolid Islt TATE <=2 S Vancomycin Islt TATE 0.25 S Normal [facility] Comment on above: Performed By: #### M 100.2200 #### [facility] [address] [place], [address] Urine cultureOrdered By: Lesvia Burden on 08-30-2024 Bacteria identified Cx Nom (U) Streptococcus mitis/ oralis Abnormal [facility] SCRN MAMM (CAD)W/LULU BILATo n 08-04-2024 SCRN MAMM (CAD)W/LULU BILAT [facility] Imaging Services [address] [place] [address] SCRN MAMM (CAD)W/LULU BILAT MR#: [id number] Acct: [id number] Name: BOBBYJASSI Rep #: [id number] : 1970 F 54 From: Owen summers MD PCP: Dr. Boyd Burden MD Status: [facility] Study: SCRN MAMM (CAD)W/LULU BILAT Date of Exam: 07/21 02/10 Exam# [id number] Ordering Dr: Karlie Melgar [facility]C [id number] MAMMOGRAPHY - BILATERAL SCREENING REASON FOR EXAM: Female, 54 years old. Routine annual screening examination. PERTINENT HISTORY: Mother with breast cancer. TECHNIQUE: Digital bilateral breast lulu (3D mammographic acquisition) in the CC and MLO projections. 2-D mediolateral oblique (MLO) and craniocaudad (CC) views of both breasts were obtained. CAD: Full Field Digital Mammography with Computer Added Detection was performed. COMPARISON: Comparison is made with prior outside examination of April 22, 2022. FINDINGS: Breast Composition: There are scattered areas of fibroglandular density. There are no dominant masses or suspicious calcifications. No other significant abnormalities are identified. There has been no significant change since the prior study. BI/SCRN MAMM (CAD)W/LULU BILAT IMPRESSION: Stable bilateral screening mammogram. Yearly follow-up mammogram recommended. (A) ASSESSMENT CATEGORY: BIRADS Category 1: Negative. A letter regarding these results will be sent to the patient by the facility within 30 days. Approximately 10% of breast cancers are not detected by mammography. A normal mammogram should not delay biopsy of a clinically suspicious abnormality. [id number] Electronically Signed: Owen Perez MD at 10:19 EST , CC: Dr. Boyd Burden MD; Karlie Melgar Gameplay Programmer: Signed Normal [facility] Estrogen, Total, Serumon ESTROGENS,TOTAL 28 pg/mL Normal . [facility] Comment on above: Order Comment: Order Date: 07/24/24Order Info: [id number] - ESTscreening, menopauseN Result Comment: Prep ubertal < 40 Female Cycle: 1-10 Days 16 - 328 11-20 Days 34 - 501 21-30 Days 48 - 350 Post-Menopausal 40 - 244 Performed at: - [facility] [id number] Electrocardiographic Technician: Otilio Licona MD, Phone: [phone] Performed By: #### L 500.4100, L506.1000, L3100.5055, L500.2500, L3400.0200 ####[facility] [address] [place], [place], [address] PAP IG HPV HR APTIMAon 08-01 ADEQ Comment Normal . [facility] Comment on above: Order Comment: Speci men Comment: [id number] Specimen Comment: Source.............Cervix Specimen Comment: Other..............Other Specimen Comment: No. of containers..01 ThinPrep Vial Result Comment: Sati sfactory for evaluation. Endocervical and/or squamous metaplastic cells (endocervical component) are present. Performed By: #### L 7400.0377 #### [facility] [address] [place], [place], [address] COMM . Normal . [facility] Comment on above: Order Comment: Speci men Comment: [id number] Specimen Comment: Source.............Cervix Specimen Comment: Other..............Other Specimen Comment: No. of containers..01 ThinPrep Vial Performed By: #### L 7400.0377 #### [facility] [address] [place], [place], [address] COMMENT Comment Normal . [facility] Comment on above: Order Comment: Speci men Comment: [id number] Specimen Comment: Source.............Cervix Specimen Comment: Other..............Other Specimen Comment: No. of containers..01 ThinPrep Vial Result Comment: This liquid based ThinPrep(R) pap test was screened with the use of an image guided system. Performed By: #### L 7400.0377 #### [facility] [address] [place], [address] DIAG Comment Normal . [facility] Comment on above: Order Comment: Speci men Comment: [id number] Specimen Comment: Source.............Cervix Specimen Comment: Other..............Other Specimen Comment: No. of containers..01 ThinPrep Vial Result Comment: NEGA TIVE FOR INTRAEPITHELIAL LESION OR MALIGNANCY. CELLULAR CHANGES ASSOCIATED WITH ATROPHY ARE PRESENT. Performed By: #### L 7400.0377 #### [facility] [address] [place], [place], [address] HPV APTIMA, HR Negative Normal Negative [facility] Comment on above: Order Comment: Speci men Comment: [id number] Specimen Comment: Source.............Cervix Specimen Comment: Other..............Other Specimen Comment: No. of containers..01 ThinPrep Vial Result Comment: This nucleic acid amplification test detects fourteen high- risk HPV types (16,18,31,33,35,39,45,51,52,56,58,59,66,68) without differentiation. Performed at: [address] [id number] Electrocardiographic Technician: Yun Maurer MD, Phone: [phone] Performed at: =G - Lab[address] [place] [id number] Electrocardiographic Technician: Yun Maurer MD, Phone: [phone] Performed By: #### L 7400.0377 #### [facility] [address] [place], [place], [address] PAPSMR Comment Normal . [facility] Comment on above: Order Comment: Speci men Comment: [id number] Specimen Comment: Source.............Cervix Specimen Comment: Other..............Other Specimen Comment: No. of containers..01 ThinPrep Vial Result Comment: The Pap smear is a screening test designed to aid in the detection of premalignant and malignant conditions of the uterine cervix. It is not a diagnostic procedure and should not be used as the sole means of detecting cervical cancer. Both false-positive and false-negative reports do occur. Performed By: #### L 7400.0377 #### [facility] [address] [place], [place], [address] PERFORM Comment Normal . [facility] Comment on above: Order Comment: Speci men Comment: [id number] Specimen Comment: Source.............Cervix Specimen Comment: Other..............Other Specimen Comment: No. of containers..01 ThinPrep Vial Result Comment: Emmanuel Neil Plumbing Engineer (ASCP) Performed By: #### L 7400.0377 #### [facility] [address] [place], [address] Basic Metabolic Profile (BMP )on 07-27-2024 BUN/CRE 32.5 RATIO High 10-20 [facility] Comment on above: Order Comment: Order Date: 07/24/24Order Info: [id number] - BMPOrder Info: [id number] - LIPIDOrder Info: [id number] - FSHLHComments: screening, menopausescreening, menopause Performed By: #### L 500.4100, L506.1000, L3100.5055, L500.2500, L3400.0200 ####[facility] [address] [place], [address] CA,Total 9.0 mg/dL Normal 8.5-10.1 [facility] Comment on above: Order Comment: Order Date: 07/24/24Order Info: [id number] - BMPOrder Info: [id number] - LIPIDOrder Info: [id number] - FSHLHComments: screening, menopausescreening, menopause Performed By: #### L 500.4100, L506.1000, L3100.5055, L500.2500, L3400.0200 ####[facility] [address] [place], [address] Chloride [Moles/Vol] 105 mmol/L Normal 98-107 [facility] Comment on above: Order Comment: Order Date: 07/24/24Order Info: 666-09 - BMPOrder Info: [id number] - LIPIDOrder Info: [id number] - FSHLHComments: screening, menopausescreening, menopause Performed By: #### L 500.4100, L506.1000, L3100.5055, L500.2500, L3400.0200 ####[facility] [address] [place], [address] CO2 [Moles/Vol] 28.0 mmol/L Normal 21.0-32.0 [facility] Comment on above: Order Comment: Order Date: 07/24/24Order Info: 666-09 - BMPOrder Info: [id number] - LIPIDOrder Info: 05 - FSHLHComments: screening, menopausescreening, menopause Performed By: #### L 500.4100, L506.1000, L3100.5055, L500.2500, L3400.0200 ####[facility] [address] [place], [address] Creatinine [Mass/Vol] 0.74 mg/dL Normal 0.55-1.02 [facility] Comment on above: Order Comment: Order Date: 07/24/24Order Info: 666-09 - BMPOrder Info: [id number] - LIPIDOrder Info: [id number]- - FSHLHComments: screening, menopausescreening, menopause Result Comment: The validity of the calculated GFR GFRAA in patients over 70 years has not been determined. Clinical correlation is essential. Performed By: #### L 500.4100, L506.1000, L3100.5055, L500.2500, L3400.0200 ####[facility] [address] [place], [address] EST GFR - AA 106 mL/min Normal >60 [facility] Comment on above: Order Comment: Order Date: 07/24/24Order Info: 666-09 - BMPOrder Info: [id number] - LIPIDOrder Info: [id number] - FSHLHComments: screening, menopausescreening, menopause Result Comment: Afri can [place] GFR Calc Performed By: #### L 500.4100, L506.1000, L3100.5055, L500.2500, L3400.0200 ####[facility] [address] [place], [address] GAP 3 Low 5-15 [facility] Comment on above: Order Comment: Order Date: 07/24/24Order Info: 666-09 - BMPOrder Info: [id number] - LIPIDOrder Info: [id number] - FSHLHComments: screening, menopausescreening, menopause Performed By: #### L 500.4100, L506.1000, L3100.5055, L500.2500, L3400.0200 ####[facility] [address] [place], [address] GFR/1.73 sq M.predicted among non-blacks MDRD (S/P/Bld) [Vol rate/Area] 87 mL/min/{1.73_m2} Normal >60 [facility] Comment on above: Order Comment: Order Date: 07/24/24Order Info: 666-09 - BMPOrder Info: - LIPIDOrder Info: [id number] - FSHLHComments: screening, menopausescreening, menopause Result Comment: Non- GFR Calc Performed By: #### L 500.4100, L506.1000, L3100.5055, L500.2500, L3400.0200 ####[facility] [address] [place], [address] Glucose [Mass/Vol] 86 mg/dL Normal 74-106 [facility] Comment on above: Order Comment: Order Date: 07/24/24Order Info: 666-09 - BMPOrder Info: - LIPIDOrder Info: [id number] - FSHLHComments: screening, menopausescreening, menopause Performed By: #### L 500.4100, L506.1000, L3100.5055, L500.2500, L3400.0200 ####[facility] [address] [place], [address] Potassium [Moles/Vol] 4.3 mmol/L Normal 3.5-5.1 [facility] Comment on above: Order Comment: Order Date: 07/24/24Order Info: 666-09 - BMPOrder Info: - LIPIDOrder Info: [id number] - FSHLHComments: screening, menopausescreening, menopause Performed By: #### L 500.4100, L506.1000, L3100.5055, L500.2500, L3400.0200 ####[facility] [address] [place], [address] Sodium [Moles/Vol] 136 mmol/L Normal 136-145 [facility] Comment on above: Order Comment: Order Date: 07/24/24Order Info: 666-09 - BMPOrder Info: - LIPIDOrder Info: [id number] - FSHLHComments: screening, menopausescreening, menopause Performed By: #### L 500.4100, L506.1000, L3100.5055, L500.2500, L3400.0200 ####[facility] [address] [place], [address] Urea nitrogen [Mass/Vol] 24 mg/dL High 7-18 [facility] Comment on above: Order Comment: Order Date: 07/24/24Order Info: 06-1 - BMPOrder Info: [id number] - LIPIDOrder Info: [id number] - FSHLHComments: screening, menopausescreening, menopause Performed By: #### L 500.4100, L506.1000, L3100.5055, L500.2500, L3400.0200 ####[facility] [address] [place], [address] FSH and LHon 07-27-2024 FSH 63.2 mIU/mL Normal [facility] Comment on above: Order Comment: Order Date: 07/24/24Order Info: 666- - BMPOrder Info: [id number] - LIPIDOrder Info: 05-1 - FSHLHComments: screening, menopausescreening, menopause Result Comment: NORMAL REFERENCE RANGES FEMALE FOLLICULAR 2.3 - 12.6 mIU/mL MID-CYCLE PEAK 5.2 - 17.5 mIU/mL LUTEAL 1.7 - 12.9 mIU/mL POST-MENOPAUSAL ON MHT 5.9 - 72.8 mIU/mL NOT ON MHT 12.7 - 132.2 mlU/mL MALE 0.7 - 10.8 mIU/mL Performed By: #### L 500.4100, L506.1000, L3100.5055, L500.2500, L3400.0200 ####[facility] [address] [place], [address] LH 30.6 mIU/mL Normal [facility] Comment on above: Order Comment: Order Date: 07/24/24Order Info: 666- - BMPOrder Info: [id number] - LIPIDOrder Info: [id number] - FSHLHComments: screening, menopausescreening, menopause Result Comment: NORMAL REFERENCE RANGES FEMALE FOLLICULAR 1.9 - 26.2 mIU/mL MID-CYCLE PEAK 22.8 - 76.1 mIU/mL LUTEAL 0.6 - 16.6 mIU/mL POST-MENOPAUSAL ON MHT 1.1 - 52.4 mIU/mL NOT ON MHT 8.6 - 61.8 mIU/mL MALE 1.2 - 10.6 mIU/mL Performed By: #### L 500.4100, L506.1000, L3100.5055, L500.2500, L3400.0200 ####[facility] [address] [place], [address] Lipid Profileon 07-27-2024 Cholesterol [Mass/Vol] 173 mg/dL Normal 200 [facility] Comment on above: Order Comment: Order Date: 07/24/24Order Info: 0667-1 - BMPOrder Info: [id number] - LIPIDOrder Info: [id number] - FSHLHComments: screening, menopausescreening, menopause Result Comment: <200 mg/dL Desirable 200-240 mg/dL Borderline >240 mg/dL High Risk Performed By: #### L 500.4100, L506.1000, L3100.5055, L500.2500, L3400.0200 ####[facility] [address] [place], [address] Cholesterol in HDL [Mass/Vol] 83 mg/dL Normal [facility] Comment on above: Order Comment: Order Date: 07/24/24Order Info: 0667-1 - BMPOrder Info: [id number] - LIPIDOrder Info: [id number] - FSHLHComments: screening, menopausescreening, menopause Result Comment: The drugs N-Acetylcysteine and Metamizole may falsely depress this assay. Reference Range HDL <40 mg/dL Low HDL Cholesterol HDL >or= 60 mg/dL High HDL Cholesterol Performed By: #### L 500.4100, L506.1000, L3100.5055, L500.2500, L3400.0200 ####[facility] [address] [place], [address] Cholesterol in LDL [Mass/Vol] 83 mg/dL Normal 0-130 [facility] Comment on above: Order Comment: Order Date: 07/24/24Order Info: 666- - BMPOrder Info: [id number] - LIPIDOrder Info: 05-1 - FSHLHComments: screening, menopausescreening, menopause Performed By: #### L 500.4100, L506.1000, L3100.5055, L500.2500, L3400.0200 ####[facility] [address] [place], [address] Cholesterol in VLDL [Mass/Vol] 7 mg/dL Normal 5-40 [facility] Comment on above: Order Comment: Order Date: 07/24/24Order Info: 666- - BMPOrder Info: [id number] - LIPIDOrder Info: 05 - FSHLHComments: screening, menopausescreening, menopause Performed By: #### L 500.4100, L506.1000, L3100.5055, L500.2500, L3400.0200 ####[facility] [address] [place], [address] Triglyceride [Mass/Vol] 36 mg/dL Normal [facility] Comment on above: Order Comment: Order Date: 07/24/24Order Info: 06- - BMPOrder Info: [id number] - LIPIDOrder Info: [id number] - FSHLHComments: screening, menopausescreening, menopause Result Comment: The drugs N-Acetylcysteine and Metamizole may falsely depress this assay. Serum Triglycerides Reference Interval Normal <150 mg/dL Borderline high 150 - 199 mg/dL High 200 - 499 mg/dL Very High > or = 500 mg/dL Performed By: #### L 500.4100, L506.1000, L3100.5055, L500.2500, L3400.0200 ####[facility] [address] [place], [address] Vitamin D,25 Hydroxyon 07-27 Vitamin D 25-OH 34.4 ng/mL Normal [facility] Comment on above: Order Comment: Order Date: 07/24/24 Order Info: [id number] - VITD25 Result Comment: Pauline min D 25(OH) Status Range Deficiency <20 ng/mL (50nmol/L) Insufficiency 20 - 30 ng/mL (50 - 75 nmol/L) Sufficiency 30 - 100 ng/mL (75 - 250 nmol/L) Toxicity >100 ng/mL (>250 nmol/L) Performed By: #### L 500.4100, L506.1000, L3100.5055, L500.2500, L3400.0200 #### [facility] [address] [place], [address] Inital Evaluation (1) - PTon 07-20-2024 Inital Evaluation (1) - PT [facility] [address] [place] [address] / REHABILITATION SERVICES INITIAL EVALUATION MR#: [id number] Acct: [id number] Name: JASSI ROSALES Rep #: [id number] : 1970 54 From: Natanael Ball PT, ATC Referring Dr.: Dr. Gary Waterman MD [facility] [employer] control [employer]Y INSURANCE Patient's Visit Information Visit Information Visit Information: JASSI ROSALES is a 54 year old F referred to Physical Therapy by Dr. Gary Waterman MD with a diagnosis of L shoulder tendonitis. Date of Evaluation: 07/20/24 Physical Therapist: Natanael Ball, PT, ATC Visit Plan Frequency: 2x /Week Duration: 1-4 weeks Plan: Issue and instruct pt on HEP of L shoulder rot cuff and scap stab ex's Subjective Subjective: Pt reports her L shoulder has been sore for approximately 2 weeks. Pt reports she did get hurt on her L shoulder when a pole fell and hit her there. Pt reports she had x-rays taken which revealed calcific tendonitis. Pt notes she is on prednisone which has really helped to control her pain. Pt denies any L UE tingling or numbness. Pt denies sleep difficulty since being placed on prednisone. Pt is R hand dominant. Pt denies any other L UE trauma in the past. 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 Pt reports she is limited from performing any activity that is over her head. Pt notes her pain is always worse as the day goes on. Pt reports her L shoulder pain is currently 5/10 while at rest, but increases to 10/10 at worst. Pain L shoulder: Pain Intensity (Out of 10): 5 Pain Intensity Range: 10 Objective Objective: Neuro: B UE sensation is WNL to light touch. B bicipital reflex= 2/3 Palpation: Pt is tender along the distribution of supraspinatus and lateral joint line. No obvious deformity at this time ROM: R shoulder flex= 165, abd= 160, ER= 70, IR= WNL;L shoulder flex= 65, abd= 65, ER= 45, IR= WNL MMT: R shoulder flex= 13, abd= 21, ER= 17, IR= 21 #F;L shoulder flex= 4, abd= 5, ER= 7, IR= 9 #F Special tests: pos empty can, neers impingement Balance/Special Test Scores Quick DASH Score: 54.5450 Goals Goal 1:: Decrease L shoulder pain x 50% to aid with sleep Goal Time Frame: 2-4 Weeks Goal 2:: Increase L shoulder flex and abd ROM x 30 degrees to aid with overhead lifting Goal Time Frame: 2-4 Weeks Goal 3:: I with HEP Goal Time Frame: 2-4 Weeks Rehabilitation Potential Physical Therapy Diagnosis: Pt has L shoulder pain, weakness, and limited ROM secondary to calcific tendonitis Rehabilitation Potential: Good Anticipated Interventions Patient/Client Instruction: Educate patient on: Condition and Plan of Care For the Purpose of:: To improve self management Therapeutic Exercise to Include: Strength training, Active ROM and Scapular Strength/Stabilizatio n For the Purpose of:: To decrease pain, To increase ROM and To improve muscle performance and motor function Cryotherapy (ice pack, ice massage): Yes For the Purpose of:: To decrease pain Text: Thank you for the opportunity to evaluate your patient. For Medicare and Medicare HMO plans, please review the plan of care and approve it. It will need to be FAXED BACK to us at [phone] for Medicare purposes. For Medicare only, by signing this I certify the plan of care. Please let me know if there are questions or concerns regarding this plan of care. Physician Signature: Date : 07/20/24 1807 CC: Dr. Boyd Burden MD; Dr. Gary Waterman MD [facility] Signed Normal [facility] Inital Evaluation (1) - PT [facility] [address] [place] [address] / REHABILITATION SERVICES INITIAL EVALUATION MR#: [id number] Acct: [id number] Name: JASSI ROSALES Rep #: [id number] : 1970 54 From: Natanael Ball PT, ATC Referring Dr.: Dr. Gary Waterman MD Status: R [facility] Insurance: [employer] INSURANCE Patient's Visit Information Visit Information Visit Information: JASSI ROSALES is a 54 year old F referred to Physical Therapy by Dr. Gary Waterman MD with a diagnosis of L shoulder tendonitis. Date of Evaluation: 07/20/24 Physical Therapist: Natanael Ball, PT, ATC Visit Plan Frequency: 2x /Week Duration: 1-4 weeks Plan: Issue and instruct pt on HEP of L shoulder rot cuff and scap stab ex's Subjective Subjective: Pt reports her L shoulder has been sore for approximately 2 weeks. Pt reports she did get hurt on her L shoulder when a pole fell and hit her there. Pt reports she had x-rays taken which revealed calcific tendonitis. Pt notes she is on prednisone which has really helped to control her pain. Pt denies any L UE tingling or numbness. Pt denies sleep difficulty since being placed on prednisone. Pt is R hand dominant. Pt denies any other L UE trauma in the past. 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 Pt reports she is limited from performing any activity that is over her head. Pt notes her pain is always worse as the day goes on. Pt reports her L shoulder pain is currently 5/10 while at rest, but increases to 10/10 at worst. Pain L shoulder: Pain Intensity (Out of 10): 5 Pain Intensity Range: 10 Objective Objective: Neuro: B UE sensation is WNL to light touch. B bicipital reflex= 2/3 Palpation: Pt is tender along the distribution of supraspinatus and lateral joint line. No obvious deformity at this time ROM: R shoulder flex= 165, abd= 160, ER= 70, IR= WNL;L shoulder flex= 65, abd= 65, ER= 45, IR= WNL MMT: R shoulder flex= 13, abd= 21, ER= 17, IR= 21 #F;L shoulder flex= 4, abd= 5, ER= 7, IR= 9 #F Special tests: pos empty can, neers impingement Balance/Special Test Scores Quick DASH Score: 54.5450 Goals Goal 1:: Decrease L shoulder pain x 50% to aid with sleep Goal Time Frame: 2-4 Weeks Goal 2:: Increase L shoulder flex and abd ROM x 30 degrees to aid with overhead lifting Goal Time Frame: 2-4 Weeks Goal 3:: I with HEP Goal Time Frame: 2-4 Weeks Rehabilitation Potential Physical Therapy Diagnosis: Pt has L shoulder pain, weakness, and limited ROM secondary to calcific tendonitis Rehabilitation Potential: Good Anticipated Interventions Patient/Client Instruction: Educate patient on: Condition and Plan of Care For the Purpose of:: To improve self management Therapeutic Exercise to Include: Strength training, Active ROM and Scapular Strength/Stabilizatio n For the Purpose of:: To decrease pain, To increase ROM and To improve muscle performance and motor function Cryotherapy (ice pack, ice massage): Yes For the Purpose of:: To decrease pain Text: Thank you for the opportunity to evaluate your patient. For Medicare and Medicare HMO plans, please review the plan of care and approve it. It will need to be FAXED BACK to us at [phone] for Medicare purposes. For Medicare only, by signing this I certify the plan of care. Please let me know if there are questions or concerns regarding this plan of care. Physician Signature: Date : 07/20/24 180 CC: Dr. Boyd Burden MD; Dr. Gary Waterman MD [facility] Signed Normal [facility] Orthopedic Visit Reporton Orthopedic Visit Report [facility] [address] [place] [address] [address] [place] [address] OFFICE VISIT Date of Service: 07/17/24 MR#: [id number] Acct: [id number] Name: JASSI ROSALES Rep #: [id number] : 1970 Provider: Dr. Gary reid MD Age/Sex: 54/F Location[place] [facility] [place] Status: Signed with Addenda ADDENDUM by BLACK Posada on 07/17/24 at 1102 Office Procedure Documentation entered by Berta Posada MA 07/17/24 11:02: Ortho Injections Injections Yes Subacromial Injection Left Is this a patient provided medication?: No Details: Obtained consent for injection. Under sterile conditions, injected the patients Left Shoulder with 2ml Kenalog and 4ml Bupivacaine. The patient tolerated the injection well without any noted complication. Patient should call our office if redness develops, pain worsens or if they have any concerns. Office Meds Kenalog 40 mg/mL suspension for injection Performing Provider: Gary Waterman MD Performing Location: [facility] Administered by: Gary Waterman MD on 07/17/24 11:01 Dose Route Admin Location Dispensed Lot Number Expiration Date NDC Man ufacturer 80 mg intra-articular Left Shoulder 2 mL [id number] 12/19/25 3122-2183-11 [facility] Date cc: * Signed Intake Vital Signs 10/22/23 16:08 07/17/24 08:31 Height 5 ft 7 in 5 ft 7 in Weight: 178 lb 180 lb BMI 27.8 28.1 BP 128/84 H Blood Pressure Location Lt brachial Position Sitting Respiration 16 Pulse 81 Pulse Source Monitor Temp 97.3 F L Temp Source Temporal Pulse Oximetry (%) 99 Oxygen Delivery Method room air Intake Visit Reasons: LEFT SHOULDER Accompanied by: Self Is patient in pain?: Yes Pain scale (1-10): 5 Allergies cephalexin Allergy (Verified 07/17/24 08:33) Hives Penicillins Allergy (Verified 07/17/24 08:33) Anaphylaxis sulfamethoxazole (From Bactrim) Allergy (Verified 07/17/24 08:33) Hives trimethoprim (From Bactrim) Allergy (Verified 07/17/24 08:33) Hives Medications ???Medication ???Instructions ???Recorded ???Confirmed ???Type cholecalciferol (vitamin D3) 10 10 mcg PO DAILY 04/05/23 10/22/23 History mcg (400 unit) tablet lactobacillus combo no.11 15 1 cap PO DAILY 04/05/23 07/17/24 History billion cell sprinkle capsule (Probiotic) magnesium 200 mg tablet 200 mg PO DAILY 04/05/23 07/17/24 History multivitamin 1 tab PO DAILY 04/05/23 07/17/24 History prednisone 20 mg tablet 20 mg PO QDAY 07/17/24 07/17/24 History PFSH Medical History Calcific tendonitis of left shoulder Left shoulder pain Gloria's deformity of right heel Right Achilles tendinitis Right ankle pain Social History Smoking Status: Never smoker alcohol intake: current alcohol intake frequency: holidays/special occasions only HPI LEFT SHOULDER Details: This documentation accurately reflects the service provided and the decisions made by me, Dr. Gary Waterman MD 07/17/24 0819. Part of today???s visit was documented by [ ], acting as scribe. JASSI ROSALES is a 54 year old F here today for left shoulder pain. 10 days history, a metal bar hit it a few months ago. pain worse at night. started prednisone better with swelling. getting stiff. no diabetes or thyroid problems. states can only lift 20 degrees. RHD. 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 getting a bit better. still lateral sided pain. Supplemental Info [facility] Imaging Services [address] [place] [address] Shoulder min 2 Views MR#: [id number] Acct: [id number] Name: JASSI ROSALES Rep #: [id number] : 1970 F 54 From: Eduardo Viramontes MD PCP: Dr. Boyd Burden MD Status: REG CLI Study: Shoulder min 2 Views Date of Exam: 07/12/24 Exam# [id number] Ordering Dr: Boyd Burden MD [id number] STUDY: X-RAY - LEFT SHOULDER REASON FOR EXAM: Female, 54 years old. left shoulder pain TECHNIQUE: 4 view(s) of the shoulder. COMPARISON: None. FINDINGS: Normal glenohumeral articulation. Normal acromioclavicular joint. Normal acromion. Normal humeral head and visualized proximal humerus. There is periarticular soft tissue calcification consistent with a calcific tendinitis. Normal visualized pulmonary apex. RAD/Shoulder min 2 Views IMPRESSION: No demonstrated fracture or joint space abnormality Evidence of calcific (more content not included)... Normal [facility] Shoulder min 2 Viewson 07-12 Shoulder min 2 Views [facility] Imaging Services [address] [place] [address] Shoulder min 2 Views MR#: [id number] Acct: [id number] Name: JASSI ROSALES Rep #: [id number] : 1970 F 54 From: Eduardo Viramontes MD PCP: Dr. Boyd Burden MD Status: REG CLI Study: Shoulder min 2 Views Date of Exam: 07/12/24 Exam# [id number] Ordering Dr: Boyd Burden MD [id number] STUDY: X-RAY - LEFT SHOULDER REASON FOR EXAM: Female, 54 years old. left shoulder pain TECHNIQUE: 4 view(s) of the shoulder. COMPARISON: None. FINDINGS: Normal glenohumeral articulation. Normal acromioclavicular joint. Normal acromion. Normal humeral head and visualized proximal humerus. There is periarticular soft tissue calcification consistent with a calcific tendinitis. Normal visualized pulmonary apex. RAD/Shoulder min 2 Views IMPRESSION: No demonstrated fracture or joint space abnormality Evidence of calcific rotator cuff tendinitis Electronically Signed: Nitish Viramontes MD at 9:48 EDT Reading Location ID and State: [facility] / [place] , Service support , CC: Dr. 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 [place] [address] EXAMINATION: DIAGNOSTIC DIGITAL LEFT BREAST MAMMOGRAM WITH TOMOSYNTHESIS, 11/12/2022 8:57 am TECHNIQUE: Diagnostic mammography of the left breast was performed with tomosynthesis. 2D standard and 3D tomosynthesis combination imaging performed through the left breast. Computer aided detection was utilized in the interpretation of this exam. Current study was also evaluated with a Computer Aided Detection (CAD) system. COMPARISON: Mammogram 04/22/2022, 04/21/2021, 08/30/2019 HISTORY: ORDERING SYSTEM PROVIDED HISTORY: Reason for Exam: lt breast pain Patient presents with left breast pain since July. Patient reports the pain is entire lateral aspect of the breast going into the axillary region. FINDINGS: BREAST DENSITY: Scattered fibroglandular tissue There is no significant mammographic finding to correlate with the left breast pain. There are benign calcifications in the left breast. No significant masses, calcifications, or other findings identified in the left breast. IMPRESSION: No mammographic correlate for the left breast pain. Clinical follow-up is recommended. The patient may return to annual mammographic screening schedule. BIRADS: MAMMOGRAM BI-RADS: 2: Benign finding RECALL: return to screening RECALL TYPE: mammo LETTER SENT: Normal BI-RADS 1 and 2 Interpreted by: Corrina Mckeon Preliminary Report By: Corrina Mckeon Electronically signed By Corrina Mckeon Dictated Date: 11/12/2022 9:38:24 AM Prelim Date: 11/12/2022 9:42:19 AM Sign Date: 11/12/2022 9:42:19 AM Ordering Provider: MEE HEMPHILL CLINICAL: LEFT BREAST PAIN. Personal Shopper: IVET ANN RT(R) (M) letter sent: Normal BI-RADS 1 and 2 Mammogram BI-RADS: 2 Benign Normal [facility] ([place]) Absolute lymphocyte countOrd ered By: eMe Hemphill on 10-14-2022 Lymphocytes Auto (Unsp spec) [#/Vol] 2.11 10*3/uL 0.83-4.51 [facility] Basophil percentageOrdered B y: Mee Hemphill on 10-14-2022 Basophils/100 WBC (Bld) 1.0 % 0-1 [facility] Bilirubin [Mass/Vol] 0.20 mg/dL 0.20-1.00 [facility] System Comment on above: For patients on eltr ombopag therapy, use of Dimension [place] TBIL is not recommended. Chloride [Moles/Vol] 106 mmol/L 98-107 [facility] Eosinophils/100 WBC (Bld) 2.6 % 0-5 [facility] Glucose [Mass/Vol] 109 mg/dL 74-106 [facility] Comment on above: Fasting Glucose resu lt from 100 to 125 mg/dL suggests IMPAIRED HOMEOSTASIS per A.D.A. criteria. Neutrophils (Bld) [#/Vol] 5.5 10*3/uL 2.0-7.7 [facility] Neutrophils/100 WBC (Bld) 65.6 % 47-70 [facility] Potassium [Moles/Vol] 3.9 mmol/L 3.5-5.1 [facility] Protein [Mass/Vol] 7.7 g/dL 6.4-8.2 [facility] Sodium [Moles/Vol] 142 mmol/L 136-145 [facility] WBC (Bld) [#/Vol] 8.4 10*3/uL 4.4-11.0 [facility] Blood erythrocytes count (nu mber/volume)Ordered By: Mee Hemphill on 10-14-2022 RBC (Bld) [#/Vol] 4.47 10*6/uL 4.2-5.4 [facility] Blood hemoglobin measurement (mass/volume)Ordered By: Mee Hemphill on 10-14-2022 Hemoglobin (Bld) [Mass/Vol] 13.0 g/dL 12.0-15.0 [facility] Blood lymphocytes/100 leukoc ytesOrdered By: Mee Hemphill on 10-14-2022 Lymphocytes/100 WBC (Bld) 25.3 % 19-41 [facility] Blood monocytes/100 leukocyt esOrdered By: Mee Hemphill on 10-14-2022 Monocytes/100 WBC (Bld) 4.7 % 0-10 [facility] Blood platelet mean volumeOr dered By: Mee Hemphill on 10-14-2022 Platelet mean volume (Bld) [Entitic vol] 8.8 fL 6.2-12.0 [facility] Determination of erythrocyte mean corpuscular volume (MCV)Ordered By: Mee Hemphill on 10-14-2022 MCV (RBC) [Entitic vol] 91.5 fL 81-99 [facility] Hematocrit Auto (Bld) [Volum e fraction]Ordered By: Mee Hemphill on 10-14-2022 Hematocrit (Bld) [Volume fraction] 40.9 % 37-47 [facility] Laboratory - Chemistry and C hemistry - challengeOrdered By: Mee Hemphill on 10-14-2022 ALP [Catalytic activity/Vol] 159 U/L 45-117 [facility] ALT [Catalytic activity/Vol] 66 U/L 13-56 [facility] CO2 [Moles/Vol] 29.0 mmol/L 21.0-32.0 [facility] Globulin (S) [Mass/Vol] 4.0 g/dL 2.2-4.2 [facility] Urea nitrogen/Creatinine [Mass ratio] 15.3 mg/mg 10-20 [facility] Laboratory - Hematology and Cell countsOrdered By: Mee Hemphill on 10-14-2022 Erythrocyte distribution width (RBC) [Entitic vol] 41.5 fL 35.1-43.9 [facility] Erythrocyte distribution width (RBC) [Ratio] 12.6 % 11.6-14.6 [facility] Immature granulocytes/100 WBC (Bld) 0.800 % 0.0-0.9 [facility] Comment on above: IG% - Immature Granu locytes (promyelocytes, myelocytes and metamyelocytes) > 1% indicates that a LEFT SHIFT is Present. MCH (RBC) [Entitic mass] 29.1 pg 27.0-32.0 [facility] Nucleated RBC/100 WBC (Bld) [Ratio] 0 % 0-5 [facility] MCHC Auto (RBC) [Mass/Vol]Or dered By: Mee Hemphill on 10-14-2022 MCHC (RBC) [Mass/Vol] 31.8 g/dL 32-36 [facility] No Panel InformationOrdered By: Mee Hemphill on 10-14-2022 Estimated GFR (MDRD) Amer 99 mL/min >60 [facility] Comment on above: GFR Calc Estimated GFR (MDRD) Non-Af Amer 82 mL/min >60 [facility] Comment on above: Non- GFR Calc Platelets bldOrdered By: Sammie aden Joby on 10-14-2022 Platelets (Bld) [#/Vol] 317 10*3/uL 150-450 [facility] Serum or plasma albumin sreekanth urement (mass/volume)Ordered By: Mee Hemphill on 10-14-2022 Albumin [Mass/Vol] 3.7 g/dL 3.2-5.0 [facility] Serum or plasma albumin/glob ulin mass ratioOrdered By: Mee Hemphill on 10-14-2022 Albumin/Globulin [Mass ratio] 0.9 {ratio} 0.9-2.4 [facility] Serum or plasma calcium sreekanth urement (mass/volume)Ordered By: Mee Hemphill on 10-14-2022 Calcium [Mass/Vol] 9.1 mg/dL 8.5-10.1 [facility] Serum or plasma creatinine m easurement (mass/volume)Ordered By: Mee Hemphill on 10-14-2022 Creatinine [Mass/Vol] 0.79 mg/dL 0.55-1.02 [facility] Comment on above: The validity of the calculated GFR & GFRAA in patients over 70 years has not been determined. Clinical correlation is essential. Serum or plasma urea nitroge n measurement (mass/volume)Ordered By: Mee Hemphill on 10-14-2022 Urea nitrogen [Mass/Vol] 12 mg/dL 7-18 [facility] Thin prep Papanicolaou smear with manual screeningOrdered By: Mee Hemphill on 10-14-2022 Thin prep Papanicolaou smear with manual screening 50 U/L 15-37 [facility] Thin prep Papanicolaou smear with manual screening 7 5-15 [facility] MA MAMMOGRAM SCREENING BILAT ERAL W/TOMOon 04-22-2022 MA MAMMOGRAM SCREENING BILATERAL W/LULU ORIGINAL FROM: JULIETTE MUSTAFA [address] [place] [id number] PROCEDURE FOR: JASSI ROSALES [address] [place] [address] Home: Work: PID#: [id number] Exam#: [id number] : 1970 Age: 52 TO: GIOVANY REYES MD [address] [place] [address] EXAMINATION: SCREENING DIGITAL BILATERAL MAMMOGRAM WITH TOMOSYNTHESIS, 04/22/2022 11:31 am TECHNIQUE: Screening mammography of the bilateral breasts was performed with tomosynthesis. 2D standard and 3D tomosynthesis combination imaging performed through both breasts in the MLO and CC projection. Computer aided detection was utilized in the interpretation of this exam. COMPARISON: 04/21/2021, 08/30/2019 HISTORY: Breast cancer screening. FINDINGS: BREAST DENSITY: Scattered fibroglandular tissue There are benign calcifications in both breasts. There are no significant masses or calcifications. IMPRESSION: No mammographic evidence of malignancy. Continued screening with annual mammograms is recommended. BIRADS: MAMMOGRAM BI-RADS: 2: Benign finding RECALL: 1 year screening RECALL TYPE: mammo LETTER SENT: Normal BI-RADS 1 and 2 Interpreted by: Yonatan Williamson MD Preliminary Report By: Yonatan Williamson MD Electronically signed By Yonatan Williamson MD Dictated Date: 04/24/2022 3:44:53 PM Prelim Date: 04/24/2022 3:47:43 PM Sign Date: 04/24/2022 3:47:43 PM Ordering Provider: GIOVANY REYES Personal Shopper: IVET ANN RT(R) (M) letter sent: Normal BI-RADS 1 and 2 Mammogram BI-RADS: 2 Benign Normal [facility] ([place]) Vital Signs Date Time Vital Sign Value Performing Clinician Kenya barbosa 03-27-2025 08:37-0400 Body height 170.18 cm Boyd Burden MD Work Phone: [facility] 03-27-2025 08:37-0400 Body mass index (BMI) [Ratio] 28.5 kg/m2 Boyd Burden MD Work Phone: [facility] 03-27-2025 08:37-0400 Body weight 82.63 kg Boyd Burden MD Work Phone: [facility] 04-05-2023 09:04-0400 Body height 170.18 cm DO Mee Hemphill Work Phone: [facility] 04-05-2023 09:04-0400 Body mass index (BMI) [Ratio] 27.8 kg/m2 DO Mee Hemphill Work Phone: [facility] 04-05-2023 09:04-0400 Body weight 80.73 kg DO Mee Hemphill Work Phone: [facility] Encounters Encounter Date Encounter Type Care Provider Facility Start: 05-04-2025 ambulatory Chrissy Solares Facility:[facility] Start: 03-27-2025 End: 03-27-[address] Boris Layne MD -[facility] Start: 03-27-2025 End: 03-27-2025 ambulatory Boyd Burden MD Work Phone: -[facility] Start: 12-25-2024 Encounter for genera l adult medical examination without abnormal findings TYLER THOMAS [facility] Start: 09-08-2024 End: 09-08-[address] Boyd Burden MD -Laboratory, Specimen Work Phone: Start: 09-08-2024 End: 09-08-2024 ambulatory Boyd Bertram Facility:[facility] Start: 09-05-2024 End: 09-05-2024 ambulatory Gary Waterman Facility:[facility] Start: 09-05-2024 End: 09-05-[address] Gary Waterman MD -Physical Therapy Work Phone: Start: 08-30-2024 End: 08-30-[address] Boyd Burden MD -Laboratory, Specimen Work Phone: Start: 08-30-2024 End: 08-30-2024 ambulatory Boyd Bertram Facility:[facility] Start: 08-04-2024 End: 08-04-20[facility] Start: 07-27-2024 End: 07-27-2024 ambulatory [facility] Facility:[facility] Start: 07-24-2024 End: 07-24-2024 ambulatory TYLER THOMAS Facility:[facility] Start: 07-17-2024 End: 07-17-2024 ambulatory Boyd Burden Facility:[facility] Start: 07-12-2024 End: 07-12-2024 ambulatory Chaljeanette Bertram Facility:[facility] Start: 06-18-2023 End: 06-18-2023 ambulatory DO Mee M Joby Work Phone: [facility] Work Phone: Start: 06-18-2023 End: 06-18-2023 Discharged Recurring DO Meedale Elainenger Work Phone: [facility]-Physical Therapy Work Phone: Start: 05-25-2023 End: 05-25-2023 Patient encounter procedure DO Mee Elainenger Work Phone: [facility] Work Phone: Start: 05-20-2023 End: 05-20-2023 Patient encounter procedure DO Mee Elainenger Work Phone: [facility] Work Phone: Start: 04-05-2023 End: 04-05-2023 Patient encounter procedure DO Mee Elainenger Work Phone: [facility] Work Phone: Start: 11-12-2022 End: 11-13-2022 ambulatory MEE MORSEER Facility:[facility] Start: 11-12-2022 End: 11-12-2022 Patient encounter procedure MEE HEMPHILL DO [facility] Start: 10-14-2022 End: 10-14-2022 ambulatory [facility] Work Phone: Start: 10-14-2022 End: 10-14-2022 Patient encounter procedure [facility] Start: 04-22-2022 End: 04-23-[address] GIOVANY REYES MD. Facility:[facility] Start: 04-22-2022 End: 04-22-[address] GIOVANY REYES MD [facility] Procedures Date Procedure Procedure Detail Performing Clinician Start: 03-27-2025 X-ray of lumbosacral spine Boyd Burden MD Work Phone: Start: 09-08-2024 Urine culture Boyd cordova MD Work Phone: Start: 08-30-2024 Urine culture Boyd cordova MD Work Phone: Start: 05-25-2023 Radiography of ankle DO Mee Hemphill Work Phone: Start: 05-25-2023 X-ray of both feet DO K lizzy Hemphill Work Phone: Start: 04-05-2023 X-ray of lumbar spin e, two or three views DO Meedale Elainenger Work Phone: Start: 08-03-[address] GIOVANY HERNANDEZ MD Comment on above: 2013 and oct Start: 09-20-[address] GIOVANY REYES MD Start: 09-20-[address] GIOVANY REYES MD Start: 09-20-[address] GIOVANY HERNANDEZ MD Comment on above: RIGHT KNEE Start: 09-20-1984 Ankle region structu re (body structure) DR GIOVANY REYES MD Comment on above: TORN TENDON Plan of Treatment Date Care Activity Detail Author Start: 03-27-2025 X-ray of lumbosacral spine L/S Spine Min 4 Views [facility] Start: 03-27-2025 XR Spine Lumbar and Sacrum GE 4 Views [facility] Start: 05-25-2023 Patient referral [facility] Work Phone: Start: 04-05-2023 Patient referral [facility] Work Phone: MR Lower Extremity Joint [facility] MR Lumbar spine [facility] Patient referral [facility] Work Phone: Payers Date Payer Category Payer Self-pay [id number] 2023 Unknown [id number] 2022 Unknown [id number] 2022 Medicaid [id number] 2003 Unknown [employer] [id number] 2003 Unknown [id number] 1970 Unknown [id number] 2.16.8 [id number] 1970 Unknown [id number] 2.16.8 [id number] Unknown [id number] 2.16.8 [id number] Unknown [id number] 2.16.8 [id number] Unknown [id number] 2.16.8 [id number] Unknown [id number] 2.16.8 [id number] Unknown [id number] 2.16.8 [id number] Unknown [id number] 2.16.8 [id number] Unknown [id number] 2.16.8 [id number] Unknown [id number] 2.16.8 [id number] Unknown [id number] 2.16.8 [id number] Unknown [id number] 2.16.8 [id number] Unknown [id number] 2.16.8 [id number] Social History Date Type Detail Facility Start: 10-22-2023 Tobacco smoking status Never s moked tobacco (finding) [facility] Start: 1970 Sex Assigned At Female A [facility] Start: 05-25-2023 [facility] Start: 12-14-2024 End: 12-25-2024 Sex Female (finding) [facility] Discharge summary 06-18-2023 Note Date & Type Note Facility 06-18-2023 Discharge summary Note Date/Time June 18, 2023 3:54pm [facility] Physical Therapy [facility] [address] [place] [address] / REHABILITATION SERVICES DISCHARGE SUMMARY MR#: [id number] Acct: [id number] Name: JASSI ROSALES Rep #: [id number] : 1970 53 From: Kristin Kaba PT, Cert. MDT Referring Dr.: Dr. lEdon White DO Status: REG R Insurance: [facility] SELF PAY INSURANCE Discharge Summary D/C summary: It has been my pleasure to treat JASSI ROSALES referred by Dr. Eldon White DO, with the diagnosis of R ACHILLES TENDINITIS for a total of 17 visit(s). Discharge Date: Please see the following information for a summary of their discharge status. Subjective Subjective: HAVING MRI'S NEXT WEEK FOR BACK AND ANKLE. OVER-ALL PATIENT REPORTS THERE IS NO SIGNIFICANT CHANGE IN HER ANKLE SINCE STARTING PT. Pain Lumbar: Pain Intensity (Out of 10): 4 Left LE: Pain Intensity (Out of 10): 3 Right LE: Pain Intensity (Out of 10): 6 Overall Improvement % Improvement: 0 Objective Objective/Function: PATIENT WAS SEEN TODAY FOR RE-ASSESSMENT OF PROGRESS TOWARD THE SET PT GOALS AND THE NEED FOR FURTHER PHYSICAL THERAPY VS READINESS FOR DISCHARGE. UPON EXAM TODAY THERE ARE NO SIGNIFICANT CHANGES SINCE STARTING PHYSICAL THERPAY FOR R ACHILLES TENDINITIS. MRI PENDING. WILL D/C DUE TO LACK OF PROGRESS. Goals Goal 1:: DECREASE C/O HYUN LB AND L LE SX'S. Goal Progress: L IMPROVING, R WORSENING Goal 2:: IMPROVE LIFTING, WALKING, SITTING, STANDING, SLEEP, SOCIAL LIFE, TRAVELAND WORK/HOMEMAKING FUNCTION. Goal Progress: Progressing Goal 3:: INSTRUCT IN PROPHYLAXIS Goal Progress: Not Progressing Goal 4:: NEW GOAL: DECREASE C/O R HEEL PAIN Goal Progress: Not Progressing Goal 5:: IMPROVE STANDING AND WALKING FUNCTION Goal Progress: Not Progressing Goal 6:: PATIENT WILL BE INDEP WITH A HEP FOR CONTINUED IMPROVEMENT ONCE FORMAL PHYSICAL THERAPY CONCLUDES. Goal Progress: Not Progressing Plan Plan: D/C D/C Information d/c sentence: If there are questions or concerns regarding this patient's physical therapy, please feel free to call me at [phone]. Thank you for the referral of thispatient. Sincerely, Kristin Kaba, PT, Cert MDT Balance/Gait/Functional tests Balance/Special Test Scores Oswestry Low Back Score: 15 Lower Extremity Functional Score: 34 Improvement % Improvement: 0 <Electronically signed by Kristin Kaba PT, Cert. MDT> 06/18/23 1554 CC: Dr. Eldon White DO; Mee Hemphill, ~ BILLIE Signed [facility] Work Phone: Clinical Note 11-12-2022 Note Date & Type Note Facility 11-12-2022 Note ORIGINAL FROM: [address] [address] PROCEDURE FOR: JASSI ROSALES [address] [place] [address] Home: Work: PID#: [id number] Exam#: [id number] : 1970 Age: 52 TO: [facility] [place] [address] EXAMINATION: DIAGNOSTIC DIGITAL LEFT BREAST MAMMOGRAM WITH TOMOSYNTHESIS, 11/12/2022 8:57 am TECHNIQUE: Diagnostic mammography of the left breast was performed with tomosynthesis. 2D standard and 3D tomosynthesis combination imaging performed through the left breast. Computer aided detection was utilized in the interpretation of this exam. Current study was also evaluated with a Computer Aided Detection (CAD) system. COMPARISON: Mammogram 04/22/2022, 04/21/2021, 08/30/2019 HISTORY: ORDERING SYSTEM PROVIDED HISTORY: Reason for Exam: lt breast pain Patient presents with left breast pain since July. Patient reports the pain is entire lateral aspect of the breast going into the axillary region. FINDINGS: BREAST DENSITY: Scattered fibroglandular tissue There is no significant mammographic finding to correlate with the left breast pain. There are benign calcifications in the left breast. No significant masses, calcifications, or other findings identified in the left breast. IMPRESSION: No mammographic correlate for the left breast pain. Clinical follow-up is recommended. The patient may return to annual mammographic screening schedule. BIRADS: MAMMOGRAM BI-RADS: 2: Benign finding RECALL: return to screening RECALL TYPE: mammo LETTER SENT: Normal BI-RADS 1 and 2 Interpreted by: Corrina Mckeon Preliminary Report By: Corrina Mckeon Electronically signed By Corrina Mckeon Dictated Date: 11/12/2022 9:38:24 AM Prelim Date: 11/12/2022 9:42:19 AM Sign Date: 11/12/2022 9:42:19 AM Ordering Provider: MEE HEMPHILL CLINICAL: LEFT BREAST PAIN. Personal Shopper: IVET ANN RT(R) (M) letter sent: Normal BI-RADS 1 and 2 Mammogram BI-RADS: 2 Benign [facility] Clinical Note 11-12-2022 Note Date & Type Note Facility 11-12-2022 Note ORIGINAL FROM: [facility] [address] [place], [place] [address] PROCEDURE FOR: JASSI ROSALES [address] [place] [address] Home: Work: PID#: [id number] Exam#: [id number] : 1970 Age: 52 TO: MEE HEMPHILL D.O. [facility] [address] [place] [address] EXAMINATION: DIAGNOSTIC DIGITAL LEFT BREAST MAMMOGRAM WITH TOMOSYNTHESIS, 11/12/2022 8:57 am TECHNIQUE: Diagnostic mammography of the left breast was performed with tomosynthesis. 2D standard and 3D tomosynthesis combination imaging performed through the left breast. Computer aided detection was utilized in the interpretation of this exam. Current study was also evaluated with a Computer Aided Detection (CAD) system. COMPARISON: Mammogram 04/22/2022, 04/21/2021, 08/30/2019 HISTORY: ORDERING SYSTEM PROVIDED HISTORY: Reason for Exam: lt breast pain Patient presents with left breast pain since July. Patient reports the pain is entire lateral aspect of the breast going into the axillary region. FINDINGS: BREAST DENSITY: Scattered fibroglandular tissue There is no significant mammographic finding to correlate with the left breast pain. There are benign calcifications in the left breast. No significant masses, calcifications, or other findings identified in the left breast. IMPRESSION: No mammographic correlate for the left breast pain. Clinical follow-up is recommended. The patient may return to annual mammographic screening schedule. BIRADS: MAMMOGRAM BI-RADS: 2: Benign finding RECALL: return to screening RECALL TYPE: mammo LETTER SENT: Normal BI-RADS 1 and 2 Interpreted by: Corrina Mckeon Preliminary Report By: Corrina Mckeon Electronically signed By Crorina Mckeon Dictated Date: 11/12/2022 9:38:24 AM Prelim Date: 11/12/2022 9:42:19 AM Sign Date: 11/12/2022 9:42:19 AM Ordering Provider: MEE HEMPHILL CLINICAL: LEFT BREAST PAIN. Personal Shopper: IVET ANN RT(R) (M) letter sent: Normal BI-RADS 1 and 2 Mammogram BI-RADS: 2 Benign [facility] Evaluation + Plan note Note Date & Type Note Facility Evaluation + Plan note No data available for this section [facility] Evaluation note Note Date & Type Note Facility Evaluation note No assessment information availa [facility] Work Phone: Evaluation note Note Date & Type Note Facility Evaluation note Diagnosis Onset Date Degenerative disc disease at L5-S1 level acute Herniated nucleus pulposus, L5-S1, left acute Degenerative disc disease at L5-S1 level acute Herniated nucleus pulposus, L5-S1, left acute Gloria's deformity of right heel acute Right Achilles tendinitis [place] Right ankle pain acute [facility] Work Phone: Hospital Discharge instructions Note Date & Type Note Facility Hospital Discharge instructions No data available for this section [facility] Hospital Discharge instructions Note Date & Type Note Facility Hospital Discharge instructions Ambulatory OrdersPain Management Location: None Selected [facility] Work Phone: Progress note Note Date & Type Note Facility Progress note No data available for this section [facility] Reason for referral (narrative) Note Date & Type Note Facility Reason for referral (narrative) No reason for referral information available [facility] Work Phone: Summary Purpose Family History No Family History Records FoundNo Family History Records Found Advance Directives No Advanced Directives Records FoundNo Advanced Directives Records Found Chief Complaint and Reason for Visit Chief Complaint LUMBER SPINE Xray room 5 LUMBAR SPINE RIGHT HEEL Room 1 ACHILLES TENDONITIS RX HERE Reason for Visit Degenerative disc di sease at L5-S1 level Herniated nucleus pulposus, L5-S1, left Degenerative disc disease at L5-S1 level Herniated nucleus pulposus, L5-S1, left Gloria's deformity of right heel Right Achilles tendinitis Right ankle pain Chief Complaint Admit Date LABSPEC August 30, 2024 1:06am PN IN L SHLD/RX HERE September 05, 2024 4:30pm Chief Complaint Admit Date LUMBAR SPINE March 27, 2025 8:26a m Room 2 March 27, 2025 8:44a m Additional Source Comments Care Team (unrecognized sect ion and content) Care Team Personnel Name: GIOVANY SULLIVAN DO Member Role: Primary Care Physician Address: Address: [address] [place] [address]- Care Team Related Persons Name: AC ROSALES Address: Home [address] [place] [address] [place] Name: JACOB ROSALES Address: Home [address] [place] [address] [place] Name: BOBBYNIDA MARCELINO Care Team Personnel Name: NATEGIOVANY Member Role: Primary Care Physician Address: Address: [address] [place] [address]- Care Team Related Persons Name: AC ROSALES Address: Home [address] [place] [address] [place] Name: JACOB ROSALES Address: Home [address] [place] [address] [place] Name: NIDA ROSALES Care Teams (unrecognized sec tion and content) Team Status: Active Member Role Status Rosalba Hemphill DO Primary Care Provider Active Team Status: Inactive Member Role Status Rosalba Hemphill DO Primary Care Provi isha, Attending Provider, Referring Provider Active Team Status: Inactive Member Role Status Rosalba Hemphill DO Primary Care Provider, Referring Provider Active Dr. Eldon White , DO Attending Provider Active Team Status: Inactive Member Role Status Rosalba Hemphill DO Primary Care Provider Active Dr. Boris Layne MD Attending Provider Active Team Status: Inactive Member Role Status Rosalba Hemphill DO Primary Care Provider, Referring Provider Active Gary Waterman MD Attending Provider Active Team Status: Inactive Member Role Status Rosalba Hemphill DO Primary Care Provider Active Dr. Eldon White , DO Attending Provider, Referring P rovider Active Gary Wateramn MD Other Provider Active Team Status: Active Member Role Status Rosalba Burden MD Primary Care Provider Active Team Status: Inactive Member Role Status Rosalba Burden MD Primary Care Provider Active St art: August 30, 2024 End: August 30, 2024 Boyd Burden MD Attending Provider Active Start : August 30, 2024 End: August 30, 2024 Team Status: Inactive Member Role Status Rosalba Burden MD Primary Care Provider Active St art: September 05, 2024 End: September 05, 2024 Gary Waterman MD Attending Provider Active St art: September 05, 2024 End: September 05, 2024 Gary Waterman MD Referring Provider Active St art: September 05, 2024 End: September 05, 2024 Team Status: Inactive Member Role Status Rosalba Burden MD Primary Care Provider Active St art: September 08, 2024 End: September 08, 2024 Boyd Burden MD Attending Provider Active Start : September 08, 2024 End: September 08, 2024 Boyd Burden MD Referring Provider Active Start : September 08, 2024 End: September 08, 2024 Team Status: Active Member Role/Relationship Status Rosalba Burden MD Primary Care Provider Active Team Status: Active Member Role/Relationship Status Rosalba Burden MD Primary Care Provider Active St art: March 27, 2025 Boyd Burden MD Referring Provider Active Start : March 27, 2025 CESAR Malone Attending Provider Active Star t: March 27, 2025 Team Status: Inactive Member Role/Relationship Status Rosalba Burden MD Primary Care Provider Active St art: March 27, 2025 End: March 27, 2025 Dr. Boris Layne MD Attending Provider Active S tart: March 27, 2025 End: March 27, 2025 Team Status: Inactive Member Role/Relationship Status Rosalba Burden MD Primary Care Provider Active St art: March 27, 2025 End: March 27, 2025 Boyd Burden MD Referring Provider Active Start : March 27, 2025 End: March 27, 2025 CESAR Malone Attending Provider Active Star t: March 27, 2025 End: March 27, 2025 Goals (unrecognized section and content) Goals may be documented in a n alternate section INFORMATION SOURCE (unrecogn ized section and content) DATE CREATED AUTHOR 11/13/2022 [facility] ([place]) DATE CREATED AUTHOR [facility]25 [facility] FOR RECORDS PERTAINING TO PATIENTS WHO ARE OR HAVE BEEN ENROLLED IN A CHEMICAL DEPENDENCY/SUBSTANCEABUSE PROGRAM, SOME INFORMATION MAY BE OMITTED. This clinical summary was aggregated from multiple sources. Caution should be exercised in using it in the provision of clinical care. This summary normalizes information from multiple sources, and as a consequence, information in this document may materially change the coding, format and clinical context of patient data. In addition, data may be omitted in some cases. CLINICAL DECISIONS SHOULD BE BASED ON THE PRIMARY CLINICAL RECORDS. [facility] [employer] [facility]. provides no warranty or guarantee of the accuracy or completeness of information in this document.
== END | disposition home or self-care (01) ==
PROVIDERS: PCP Family Medicine; Referring Provider Student in an Organized Health Care Education/Training Program; Visit Provider Student in an Organized Health Care Education/Training Program
DX: M54.16 Radiculopathy, lumbar region (principal); M51.370 Other intervertebral disc degeneration, lumbosacral region with discogenic back pain only; M21.372 Foot drop, left foot
CPT/HCPCS: 72158; A9575

== ENCOUNTER → 2025-08-21 | Outpatient (CLI) | payer OTHER, SELFPAY ==
--- NOTE | 2025-08-21 12:15 | BI_ITS ---
EXAM: SCRN MAMM (CAD)W/LULU BILAT DATE: 08/21/2025 CLINICAL HISTORY: F, Age 55 y/o , SCREENING FOR BREAST CANCER Mother with breast cancer. TECHNIQUE: Procedure Code: [id number] Modality: MG Procedure: SCRN MAMM (CAD)W/LULU BILAT COMPARISON: Prior exam(s) dated August 04, 2024.. FINDINGS: TISSUE DENSITY: There are scattered areas of fibroglandular density. Bilateral Breast Mammographic Findings: No significant masses, calcifications or other abnormalities are identified. No suspicious masses, areas of developing architectural distortion, or suspicious calcifications. There has been no significant interval change. BI/SCRN MAMM (CAD)W/LULU BILAT IMPRESSION: Stable bilateral screening mammogram. OVERALL FINAL ASSESSMENT BI-RADS 1: NEGATIVE. RECOMMENDATION: Routine annual follow-up in 1 Year Additional Recommendation none A letter with findings and recommendations will be mailed to the patient. Reading Location: [facility]
== END | disposition home or self-care (01) ==
PROVIDERS: PCP Family Medicine
DX: Z12.31 Encounter for screening mammogram for malignant neoplasm of breast (principal)
CPT/HCPCS: 77063; 77067